=== PATIENT | male | born 1955 | race Caucasian/White ===

== ENCOUNTER 2018-10-21 21:54 | Observation (INO) | payer MEDICARE, OTHER ==
[2018-10-21] MEDS ORDERED: Sodium Chloride 0.9% 1,000 ML IV ONE (22:06)
[2018-10-21] MEDS ORDERED: Sodium Chloride 0.9% 1,000 ML IV SCH (22:15)
--- NOTE | 2018-10-21 22:24 | EDM.PDOC ---
ED HPI GENERAL MEDICAL PROBLEM - General Chief Complaint: Chest Pain Stated Complaint: CHEST PAIN Time Seen by Provider: 10/21/18 22:17 - History of Present Illness INITIAL COMMENTS - FREE TEXT/NARRATIVE: HISTORY AND PHYSICAL: History of present illness: Patient is a 63-year-old male history of medical noncompliance coronary artery disease with stent placement approximately 1 year prior with type 2 diabetes but his deferred medication for management he states is not make him feel well. He presents today with of chest discomfort that occurred when he was bringing in groceries with midsternal no clear associated nausea vomiting palpitations or diaphoresis. medics were notified patient did receive a total of 3 sublingual nitroglycerin and 50 fentanyl patient did also receive aspirin prior to arrival Review of systems: As per history of present illness and below otherwise all systems reviewed and negative. Past medical history: As per history of present illness and as reviewed below otherwise noncontributory. Surgical history: As per history of present illness and as reviewed below otherwise noncontributory. Social history: No reported history of drug or alcohol abuse. Family history: As per history of present illness and as reviewed below otherwise noncontributory. Physical exam: HEENT: Atraumatic, normocephalic, pupils reactive, negative for conjunctival pallor or scleral icterus, mucous membranes moist, throat clear, neck supple, nontender, trachea midline. Lungs: Clear to auscultation, breath sounds equal bilaterally, chest nontender. Heart: S1S2, regular, negative for clicks, rubs, or JVD. Abdomen: Soft, nondistended, nontender. Negative for masses or hepatosplenomegaly. Negative for costovertebral tenderness. Pelvis: Stable nontender. Genitourinary: Deferred. Rectal: Deferred. Extremities: Atraumatic, negative for cords or calf pain. Neurovascular unremarkable. Neuro: Awake, alert, oriented. Cranial nerves II through XII unremarkable. Cerebellum unremarkable. Motor and sensory unremarkable throughout. Exam nonfocal. Diagnostics: CBC CMP troponin PT/INR chest x-ray EKG Therapeutics: IV O2 monitor Impression: #1 chest pain #2 type 2 diabetes #3 medical noncompliance Definitive disposition and diagnosis as appropriate pending reevaluation and review of above. Treatments CONSTITUTION[employer] PROFESSOR: Reports: Aspirin, IV/IO, Other (see below) Other Treatments CONSTITUTIONAL [employer] PROFESSOR: fentanyl chest Pain Score (Numeric/FACES): 3 - Related Data Allergies Allergy/AdvReac Type Severity Reaction Status Date / Time No Known Allergies Allergy Verified 10/21/18 22:00 Home Meds: Home Meds Lisinopril 5 mg PO BID 10/21/18 [History] Metoprolol Succinate [Kapspargo Sprinkle] 25 mg PO BID 10/21/18 [History] Past Medical History HEENT History: Reports: None Cardiovascular History: Reports: Hypertension Endocrine/Metabolic History: Reports: Diabetes, Type II, Other (See Below) Other Endocrine/Metabolic History: states "im not taking any medicine for diabetes" - Infectious Disease History Infectious Disease History: Reports: Chicken Pox, Mumps - Past Surgical History HEENT Surgical History: Reports: Adenoidectomy, Tonsillectomy Cardiovascular Surgical History: Reports: None Endocrine Surgical History: Reports: None Social & Family History - Family History Family Medical History: Noncontributory - Tobacco Use Smoking Status *Q: Former Smoker Used Tobacco, but Quit: Yes Month/Year Tobacco Last Used: "10-15years" - Caffeine Use Caffeine Use: Reports: Coffee - Recreational Drug Use Recreational Drug Use: No ED ROS GENERAL - Review of Systems Review Of Systems: ROS reveals no pertinent complaints other than HPI. ED EXAM, GENERAL - Physical Exam Exam: See Below (See dictation) Course - Vital Signs Last Recorded V/S: Last Vital Signs Temp 36.1 C 10/21/18 21:56 Pulse 97 10/21/18 22:58 Resp 14 10/21/18 22:38 BP 86/52 L 10/21/18 22:58 Pulse Ox 96 10/21/18 22:58 - Orders/Labs/Meds Orders: Active Orders 24 hr Category Date Time Status Cardiac Monitoring [RC] . DIRECTED Care 10/21/18 22:02 Active EKG Documentation Completion [RC] STAT Care 10/21/18 22:02 Active Sodium Chloride 0.9% [Normal Saline] 1,000 ml Med 10/21/18 22:06 Active IV .Bolus Sodium Chloride 0.9% [Normal Saline] 1,000 ml Med 10/21/18 23:00 Active IV ASDIRECTED Medication Orders Sodium Chloride (Normal Saline) 1,000 mls @ 999 mls/hr IV .Bolus ONE Stop: 10/21/18 23:06 Last Admin: 10/21/18 22:15 Dose: 999 mls/hr Sodium Chloride (Normal Saline) 1,000 mls @ 125 mls/hr IV ASDIRECTED MECHE Last Admin: 10/21/18 22:47 Dose: 125 mls/hr Labs: Laboratory Tests 10/21/18 10/21/18 10/21/18 Range/Units 22:11 22:11 22:11 WBC 6.49 (4.0-11.0) K/uL RBC 4.56 (4.50-5.90) M/uL Hgb 14.3 (13.0-17.0) g/dL Hct 42.1 (38.0-50.0) % MCV 92.3 (80.0-98.0) fL MCH 31.4 (27.0-32.0) pg MCHC 34.0 (31.0-37.0) g/dL RDW Std Deviation 44.7 (28.0-62.0) fl RDW Coeff of Yazan 13 (11.0-15.0) % Plt Count 161 (150-400) K/uL MPV 10.10 (7.40-12.00) fL Neut % (Auto) 61.6 (48.0-80.0) % Lymph % (Auto) 24.5 (16.0-40.0) % [place] % (Auto) 10.6 (0.0-15.0) % Eos % (Auto) 2.8 (0.0-7.0) % Baso % (Auto) 0.5 (0.0-1.5) % Neut # (Auto) 4.0 (1.4-5.7) K/uL Lymph # (Auto) 1.6 (0.6-2.4) K/uL [place] # (Auto) 0.7 (0.0-0.8) K/uL Eos # (Auto) 0.2 (0.0-0.7) K/uL Baso # (Auto) 0.0 (0.0-0.1) K/uL Nucleated RBC % 0.0 /100WBC Nucleated RBCs # 0 K/uL INR 0.98 Sodium 137 (136-148) mmol/L Potassium 4.7 (3.5-5.1) mmol/L Chloride 100 (98-107) mmol/L Carbon Dioxide 22.5 (21.0-32.0) mmol/L BUN 33 H (7.0-18.0) mg/dL Creatinine 2.0 H (0.8-1.3) mg/dL Est Cr Clr Drug Dosing 40.42 mL/min Estimated GFR (MDRD) 33.7 ml/min Glucose 488 H (74-106) mg/dL Calcium 9.0 (8.5-10.1) mg/dL Total Bilirubin 0.4 (0.2-1.0) mg/dL AST 9 L (15-37) IU/L ALT 13 L (14-63) IU/L Alkaline Phosphatase 90 (46-116) U/L Troponin I < 0.050 (0.000-0.056) ng/mL Total Protein 6.2 L (6.4-8.2) g/dL Albumin 3.1 L (3.4-5.0) g/dL Globulin 3.1 (2.6-4.0) g/dL Albumin/Globulin Ratio 1.0 (0.9-1.6) Meds: Medications Generic Name Dose Route Start Last Admin Trade Name Freq PRN Reason Stop Dose Admin Sodium Chloride 1,000 mls @ 999 mls/hr 10/21/18 22:06 10/21/18 22:15 Normal Saline IV 10/21/18 23:06 999 mls/hr .Bolus ONE Administration Sodium Chloride 1,000 mls @ 125 mls/hr 10/21/18 23:00 10/21/18 22:47 Normal Saline IV 125 mls/hr ASDIRECTED MECHE Administration Discontinued Medications Generic Name Dose Route Start Last Admin Trade Name Freq PRN Reason Stop Dose Admin Sodium Chloride 1,000 mls @ 999 mls/hr 10/21/18 22:15 Normal Saline IV ASDIRECTED MECHE Departure - Departure Time of Disposition: 23:02 Disposition: Home, Self-Care 01 Condition: Good Clinical Impression: Chest pain, Diabetes, Medical non-compliance - Discharge Information Referrals: PCP,None [Primary Care Provider] - Forms: ED Department Discharge - My Orders Last 24 Hours: My Active Orders 10/21/18 22:02 Cardiac Monitoring [RC] . DIRECTED EKG Documentation Completion [RC] STAT 10/21/18 22:06 Sodium Chloride 0.9% [Normal Saline] 1,000 ml IV .Bolus 10/21/18 23:00 Sodium Chloride 0.9% [Normal Saline] 1,000 ml IV ASDIRECTED - Assessment/Plan Last 24 Hours: My Active Orders 10/21/18 22:02 Cardiac Monitoring [RC] . DIRECTED EKG Documentation Completion [RC] STAT 10/21/18 22:06 Sodium Chloride 0.9% [Normal Saline] 1,000 ml IV .Bolus 10/21/18 23:00 Sodium Chloride 0.9% [Normal Saline] 1,000 ml IV ASDIRECTED
[2018-10-21 22:43] LABS: CHLORIDE,CL 100 mmol/L (98-107); SODIUM,NA 137 mmol/L (136-148)
[2018-10-21] MEDS: Sodium Chloride 0.9% 1,000 ML IV SCH (22:47)
--- NOTE | 2018-10-21 22:56 | CR ---
INDICATION: Chest pain TECHNIQUE: Chest radiograph 1 view COMPARISON: None FINDINGS: Moderate degradation of image quality noted due to body habitus. Mediastinum: There is a hemispherical masslike density in the right paratracheal region at the thoracic inlet measuring 3.8 cm. The heart silhouette is normal in size and morphology. Lung: There is an azygos fissure present which is a normal variant. Mild linear scarring or atelectasis is seen in the left lateral lung base. No sign of pleural effusion seen. No pneumothorax is identified. IMPRESSION: 1. There is a hemispherical masslike density in the right paratracheal region at the thoracic inlet measuring 3.8 cm. Further evaluation with chest CT is recommended. Dictated by Porter Zaman MD @ 10/21/2018 10:54:38 PM Dictated by: Porter Zaman MD @ 10/21/2018 22:54:41 (Electronically Signed)
[2018-10-22] MEDS ORDERED: Insulin Aspart 100 Units/ML 3 ML Pen SUBCUT ONE (00:24)
--- NOTE | 2018-10-22 01:12 | PCM.HP ---
H&P History of Present Illness - General Date of Service: 10/22/18 Admit Problem/Dx: Admission Diagnosis/Problem Admission Diagnosis/Problem Chest pain - History of Present Illness Initial Comments - Free Text/Narative: 63 yo male with pmh of DM, CAD, s/p stent four years ago who presents with chest pain. Patient reports center chest pressure that took three SL nitros for pain relief. He reports he had a stress full day at work then went out at too much for dinner with a sania. He then went grocery shopping and was brining his groceries in. He reports he usually manages his diabetes with diet and probiotics. He recently started to work in [place] the past several weeks and he has been noncompliant with his diet. He reports he has not tolerated oral hypoglycemics. chest Pain Score (Numeric/FACES): 3 - Related Data Allergies/Adverse Reactions: Allergies Allergy/AdvReac Type Severity Reaction Status Date / Time No Known Allergies Allergy Verified 10/22/18 00:26 Home Medications: Home Meds Lisinopril 5 mg PO BID 10/21/18 [History] Metoprolol Succinate [Kapspargo Sprinkle] 25 mg PO BID 10/21/18 [History] Past Medical History HEENT History: Reports: Cataract Cardiovascular History: Reports: Hypertension Genitourinary History: Reports: Prostate Disorder Endocrine/Metabolic History: Reports: Diabetes, Type II, Other (See Below) Other Endocrine/Metabolic History: states "im not taking any medicine for diabetes" - Infectious Disease History Infectious Disease History: Reports: Chicken Pox, Mumps - Past Surgical History HEENT Surgical History: Reports: Adenoidectomy, Tonsillectomy Cardiovascular Surgical History: Reports: Coronary Artery Stent Other Cardiovascular Surgeries/Procedures: Stent put in 4 years ago Male Surgical History: Reports: TURP-Transurethral Resection of Prostate, Other (See Below) Other Male Surgeries/Procedures: 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 Exam - Vital Signs Vital Signs: Last Vital Signs Temp 36.4 C 10/22/18 00:00 Pulse 100 10/22/18 00:00 Resp 18 10/22/18 00:00 BP 114/72 10/22/18 00:00 Pulse Ox 98 10/22/18 00:00 Weight: 109.769 kg - Exam Quality Assessment: Skin Breakdown General: Alert HEENT: Mucosa Moist & [place] Lungs: Clear to Auscultation, Normal Respiratory Effort Cardiovascular: Regular Rate, Regular Rhythm GI/Abdominal Exam: Normal Bowel Sounds, Soft, Non-Tender Extremities: Non-Tender, No Pedal Edema Skin: Warm, Dry, Intact Neurological: Cranial Nerves Intact - Patient Data Lab Results Last 24 hrs: Laboratory Results - last 24 hr 10/21/18 10/21/18 10/21/18 Range/Units 22:11 22:11 22:11 WBC 6.49 (4.0-11.0) K/uL RBC 4.56 (4.50-5.90) M/uL Hgb 14.3 (13.0-17.0) g/dL Hct 42.1 (38.0-50.0) % MCV 92.3 (80.0-98.0) fL MCH 31.4 (27.0-32.0) pg MCHC 34.0 (31.0-37.0) g/dL RDW Std Deviation 44.7 (28.0-62.0) fl RDW Coeff of Yazan 13 (11.0-15.0) % Plt Count 161 (150-400) K/uL MPV 10.10 (7.40-12.00) fL Neut % (Auto) 61.6 (48.0-80.0) % Lymph % (Auto) 24.5 (16.0-40.0) % [place] % (Auto) 10.6 (0.0-15.0) % Eos % (Auto) 2.8 (0.0-7.0) % Baso % (Auto) 0.5 (0.0-1.5) % Neut # (Auto) 4.0 (1.4-5.7) K/uL Lymph # (Auto) 1.6 (0.6-2.4) K/uL [place] # (Auto) 0.7 (0.0-0.8) K/uL Eos # (Auto) 0.2 (0.0-0.7) K/uL Baso # (Auto) 0.0 (0.0-0.1) K/uL Nucleated RBC % 0.0 /100WBC Nucleated RBCs # 0 K/uL INR 0.98 Sodium 137 (136-148) mmol/L Potassium 4.7 (3.5-5.1) mmol/L Chloride 100 (98-107) mmol/L Carbon Dioxide 22.5 (21.0-32.0) mmol/L BUN 33 H (7.0-18.0) mg/dL Creatinine 2.0 H (0.8-1.3) mg/dL Est Cr Clr Drug Dosing 40.42 mL/min Estimated GFR (MDRD) 33.7 ml/min Glucose 488 H (74-106) mg/dL POC Glucose (60-110) mg/dL Calcium 9.0 (8.5-10.1) mg/dL Total Bilirubin 0.4 (0.2-1.0) mg/dL AST 9 L (15-37) IU/L ALT 13 L (14-63) IU/L Alkaline Phosphatase 90 (46-116) U/L Troponin I < 0.050 (0.000-0.056) ng/mL Total Protein 6.2 L (6.4-8.2) g/dL Albumin 3.1 L (3.4-5.0) g/dL Globulin 3.1 (2.6-4.0) g/dL Albumin/Globulin Ratio 1.0 (0.9-1.6) 10/22/18 Range/Units 00:50 WBC (4.0-11.0) K/uL RBC (4.50-5.90) M/uL Hgb (13.0-17.0) g/dL Hct (38.0-50.0) % MCV (80.0-98.0) fL MCH (27.0-32.0) pg MCHC (31.0-37.0) g/dL RDW Std Deviation (28.0-62.0) fl RDW Coeff of Yazan (11.0-15.0) % Plt Count (150-400) K/uL MPV (7.40-12.00) fL Neut % (Auto) (48.0-80.0) % Lymph % (Auto) (16.0-40.0) % [place] % (Auto) (0.0-15.0) % Eos % (Auto) (0.0-7.0) % Baso % (Auto) (0.0-1.5) % Neut # (Auto) (1.4-5.7) K/uL Lymph # (Auto) (0.6-2.4) K/uL [place] # (Auto) (0.0-0.8) K/uL Eos # (Auto) (0.0-0.7) K/uL Baso # (Auto) (0.0-0.1) K/uL Nucleated RBC % /100WBC Nucleated RBCs # K/uL INR Sodium (136-148) mmol/L Potassium (3.5-5.1) mmol/L Chloride (98-107) mmol/L Carbon Dioxide (21.0-32.0) mmol/L BUN (7.0-18.0) mg/dL Creatinine (0.8-1.3) mg/dL Est Cr Clr Drug Dosing mL/min Estimated GFR (MDRD) ml/min Glucose (74-106) mg/dL POC Glucose 419 H (60-110) mg/dL Calcium (8.5-10.1) mg/dL Total Bilirubin (0.2-1.0) mg/dL AST (15-37) IU/L ALT (14-63) IU/L Alkaline Phosphatase (46-116) U/L Troponin I (0.000-0.056) ng/mL Total Protein (6.4-8.2) g/dL Albumin (3.4-5.0) g/dL Globulin (2.6-4.0) g/dL Albumin/Globulin Ratio (0.9-1.6) Result Diagrams: 10/21/18 22:11 10/21/18 22:11 Problem List Initiated/Reviewed/Updated: Yes Orders Last 24hrs: Active Orders 24 hr Category Date Time Status Patient Status [ADT] Stat ADT 10/21/18 23:04 Active Accu Check [Blood Glucose Check, Bedside] [RC] ONETIME Care 10/22/18 03:00 Ordered Antiembolic Devices [RC] PER UNIT ROUTINE Care 10/22/18 01:08 Ordered Blood Glucose Check, Bedside [RC] TIDMEALS Care 10/22/18 01:07 Ordered Cardiac Monitoring [RC] . DIRECTED Care 10/21/18 22:02 Active EKG Documentation Completion [RC] STAT Care 10/21/18 22:02 Active Oxygen Therapy [RC] PRN Care 10/22/18 01:07 Ordered VTE/DVT Education [RC] PER UNIT ROUTINE Care 10/22/18 01:07 Ordered Vital Signs [RC] Q4H Care 10/22/18 01:07 Ordered Consult to Diabetic Nurse Specialist [CONS] Routine Cons 10/22/18 01:07 Ordered [employer] Diet [DIET] Diet 10/22/18 Breakfast Ordered GLYCOSYLATED HEMOGLOBIN,HGBA1C [CHEM] Stat Lab 10/22/18 04:00 Ordered TROPONIN I [CHEM] Q6H Lab 10/22/18 04:00 Ordered TROPONIN I [CHEM] Q6H Lab 10/22/18 10:00 Ordered Insulin Aspart [NovoLOG] Med 10/22/18 07:30 Ordered See Protocol SUBCUT TIDAC Sodium Chloride 0.9% [Normal Saline] 1,000 ml Med 10/21/18 23:00 Active IV ASDIRECTED Sequential Compression Device [OM.PC] Per Unit Routine Oth 10/22/18 01:07 Ordered Resuscitation Status Routine Resus Stat 10/22/18 01:07 Ordered Medication Orders Sodium Chloride (Normal Saline) 1,000 mls @ 125 mls/hr IV ASDIRECTED MECHE Last Admin: 10/21/18 22:47 Dose: 125 mls/hr Insulin Aspart (Novolog) 0 unit SUBCUT TIDAC MECHE; Protocol Assessment/Plan Comment:: 63 yo male who presents with chest pain.
[2018-10-22 04:18] LABS: HEMOGLOBIN A1C 12.8 % (4.5-6.2)
[2018-10-22] MEDS: Sodium Chloride 0.9% 1,000 ML IV SCH (06:35)
[2018-10-22] MEDS: Insulin Aspart 100 Units/ML 3 ML Pen SUBCUT SCH ×2 (08:20→11:48)
[2018-10-22] MEDS ORDERED: Insulin Glargine,Human Rec. Analog 100 Units/ML 3 ML Pen SUBCUT SCH (09:00)
[2018-10-22] MEDS ORDERED: Pantoprazole 40 MG in Sodium Chloride 0.9% 100 ML IVPUSH ONE (09:01)
[2018-10-22] MEDS ORDERED: Calcium Carbonate 500 MG Tab.Chew PO PRN (09:01)
[2018-10-22] MEDS ORDERED: Pantoprazole 40 MG Vial IVPUSH ONE (09:15)
[2018-10-22 11:56] LABS: CHLORIDE,CL 104 mmol/L (98-107); SODIUM,NA 139 mmol/L (136-148)
--- NOTE | 2018-10-22 14:33 | CT ---
EXAMINATION: CT chest without contrast HISTORY: Mass COMPARISON: Radiographs dated 10/21/2018 TECHNIQUE: Axial CT imaging obtained through the chest without contrast. Coronal and sagittal reconstructions obtained. FINDINGS: The lungs are clear without focal consolidation. Mild groundglass changes noted within the lung apices with a trace interlobular septal thickening. No pleural effusion or pneumothorax. The heart is normal in size without pericardial effusion. Coronary artery calcifications. No mediastinal lymphadenopathy, no hilar fullness. No axillary lymphadenopathy. Accessory azygos fissure. Visualized images of the upper abdomen appear normal. No suspicious osseous abnormalities. IMPRESSION: 1. Mild groundglass changes within the lung apices with a trace interlobular septal thickening. This may represent minimal pulmonary edema, however given the location consider follow-up imaging. 2. There is no mass identified within the region of concern. 3. Accessory azygos fissure.
--- NOTE | 2018-10-22 15:21 | PCM.DCSUM1 ---
Discharge Summary - Hospital Course Brief History: 63 yo male with pmh of DM, CAD, s/p stent four years ago who presents with chest pain. Patient reports center chest pressure that took three SL nitros for pain relief. He reports he had a stress full day at work then went out at too much for dinner with a sania. He then went grocery shopping and was brining his groceries in. He reports he usually manages his diabetes with diet and probiotics. He recently started to work in [employer] the past several weeks and he has been noncompliant with his diet. He reports he has not tolerated oral hypoglycemics. Diagnosis: Stroke: No - Discharge Data Discharge Date: 10/22/18 Discharge Disposition: Home, Self-Care 01 Condition: Stable - Discharge Diagnosis/Problem(s) (1) Chest pain SNOMED Code(s): 16640146 ICD Code: R07.9 - CHEST PAIN, UNSPECIFIED Status: Acute Current Visit: Yes (2) History of coronary artery stent placement SNOMED Code(s): 856723044, 118793362 ICD Code: Z95.5 - PRESENCE OF CORONARY ANGIOPLASTY IMPLANT AND GRAFT Status : Chronic Current Visit: Yes (3) CAD (coronary artery disease) SNOMED Code(s): 53666898 ICD Code: I25.10 - ATHSCL HEART DISEASE OF [place] CORONARY ARTERY W/O ANG PCTRS Status: Chronic Current Visit: Yes Qualifiers: Coronary Disease-Associated Artery/Lesion type: [place] artery [place] vs. transplanted heart: [place] heart Associated angina: without angina Qualified Code(s): I25.10 - Atherosclerotic heart disease of [place] coronary artery without angina pectoris (4) Diabetes SNOMED Code(s): 70195764 ICD Code: E11.9 - TYPE 2 DIABETES MELLITUS WITHOUT COMPLICATIONS Status: Chronic Current Visit: Yes Qualifiers: Diabetes mellitus type: type 2 Diabetes mellitus rodent exterminator insulin use: without rodent exterminator use Diabetes mellitus complication status: with hyperglycemia Qualified Code(s): E11.65 - Type 2 diabetes mellitus with hyperglycemia (5) Medical non-compliance SNOMED Code(s): 440170607 ICD Code: Z91.19 - PATIENT'S NONCOMPLIANCE W OTH MEDICAL TREATMENT AND REGIMEN Status: Chronic Current Visit: Yes - Patient Summary/Data Consults: Consultations 10/22/18 01:07 Consult to Diabetic Nurse Specialist [CONS] Routine - Patient Instructions Diet: Heart Healthy Diet, Diabetic Diet Activity: As Tolerated, No Strenuous Activities Showering/Bathing: May Shower Notify Provider of: Fever, Increased Pain, Swelling and Redness, Drainage, Nausea and/or Vomiting - Discharge Plan *PRESCRIPTION DRUG MONITORING PROGRAM REVIEWED*: Not Applicable *COPY OF PRESCRIPTION DRUG MONITORING REPORT IN PATIENT HIRAL: Not Applicable Prescriptions/Med Rec: Aspirin 81 mg PO DAILY #30 tab.chew atorvaSTATin [Lipitor] 40 mg PO BEDTIME #30 tablet Insulin Aspart [NovoLOG] See Protocol SUBCUT TIDAC #1 box Insulin Glarg,Human.Rec.Analog [Lantus Solostar] 10 units SUBCUT DAILY #1 box Lisinopril 5 mg PO DAILY #30 tablet Home Medications: Home Meds Metoprolol Succinate [Kapspargo Sprinkle] 25 mg PO BID 10/21/18 [History] Aspirin 81 mg PO DAILY #30 tab.chew 10/22/18 [Rx] Insulin Aspart [NovoLOG] See Protocol SUBCUT TIDAC #1 box 10/22/18 [Rx] Insulin Glarg,Human.Rec.Analog [Lantus Solostar] 10 units SUBCUT DAILY #1 box [Rx] Lisinopril 5 mg PO DAILY #30 tablet 10/22/18 [Rx] atorvaSTATin [Lipitor] 40 mg PO BEDTIME #30 tablet 10/22/18 [Rx] Oxygen Therapy Mode: Room Air Referrals: Irma Adame PA [Physician Voice Data Communications Engineer] - 10/31/18 8:00 am - Discharge Summary/Plan Comment DC Time >30 min.: No Discharge Summary/Plan Comment: Admitting diagnoses: Chest pain Hyperglycemia Discharge Diagnosis Chest pain resolved Hyperglycemia- improving Hyperlipidemia Other PMH: Uncontrolled Type 2 DM HTN CAD Hx coronary artery stenting Lalo is feeling better this morning, no further chest pain. BS have been controlled with insulin. He will be started on Lantus 10 units and Novolog SSI with meals since he has been unable to tolerate oral hypoglycemic agents. A1c returned at 12.8. DM educator will see him prior to discharge and will follow up with him as well. He will be started on Atorvastatin for his CAD and hyperlipidemia, triglycerides 460, Total cholesterol 256, and HDL 28. He will also be encouraged to take an Aspirin daily. He will be set up for outpatient stress test to further evaluate. He keep with heart healthy diet as well as diabetic diet. Chest CT was completed on chest xray revealed possible paratracheal mass. No mass noted on CT, ground glass opacities noted, repeat CT in a few weeks recommended. Denies shortness of breath. He will have follow up appointment with PCP in 1 week, stress test and follow up with DM educator to monitor insulin and make adjustments as needed. - General Info Date of Service: 10/22/18 Admission Dx/Problem (Free Text: Admission Diagnosis/Problem Admission Diagnosis/Problem Chest pain Subjective Update: Feeling better today. No chest pain. No complaints. Eager for discharge home. Functional Status: Reports: Pain Controlled, Tolerating Diet, Ambulating, Urinating - Review of Systems General: Reports: No Symptoms. Denies: Weakness, Fatigue Pulmonary: Reports: No Symptoms. Denies: Shortness of Breath Cardiovascular: Reports: No Symptoms. Denies: Chest Pain, Orthopnea, Edema Gastrointestinal: Reports: No Symptoms. Denies: Abdominal Pain, Nausea, Vomiting Genitourinary: Reports: No Symptoms Musculoskeletal: Reports: No Symptoms Skin: Reports: No Symptoms Neurological: Reports: No Symptoms Psychiatric: Reports: No Symptoms - Patient Data Vitals - Most Recent: Last Vital Signs Temp 97.6 F 10/22/18 12:18 Pulse 88 10/22/18 12:18 Resp 16 10/22/18 12:18 BP 126/78 10/22/18 12:18 Pulse Ox 95 10/22/18 12:18 Weight - Most Recent: 109.769 kg I&O - Last 24 hours: Intake & Output 10/22/18 10/22/18 10/22/18 06:59 14:59 22:59 Intake Total 1119 Output Total 0 Balance 1119 Lab Results - Last 24 hrs: Laboratory Results - last 24 hr 10/21/18 10/21/18 10/21/18 Range/Units 22:11 22:11 22:11 WBC 6.49 (4.0-11.0) K/uL RBC 4.56 (4.50-5.90) M/uL Hgb 14.3 (13.0-17.0) g/dL Hct 42.1 (38.0-50.0) % MCV 92.3 (80.0-98.0) fL MCH 31.4 (27.0-32.0) pg MCHC 34.0 (31.0-37.0) g/dL RDW Std Deviation 44.7 (28.0-62.0) fl RDW Coeff of Yazan 13 (11.0-15.0) % Plt Count 161 (150-400) K/uL MPV 10.10 (7.40-12.00) fL Neut % (Auto) 61.6 (48.0-80.0) % Lymph % (Auto) 24.5 (16.0-40.0) % [place] % (Auto) 10.6 (0.0-15.0) % Eos % (Auto) 2.8 (0.0-7.0) % Baso % (Auto) 0.5 (0.0-1.5) % Neut # (Auto) 4.0 (1.4-5.7) K/uL Lymph # (Auto) 1.6 (0.6-2.4) K/uL [place] # (Auto) 0.7 (0.0-0.8) K/uL Eos # (Auto) 0.2 (0.0-0.7) K/uL Baso # (Auto) 0.0 (0.0-0.1) K/uL Nucleated RBC % 0.0 /100WBC Nucleated RBCs # 0 K/uL INR 0.98 Sodium 137 (136-148) mmol/L Potassium 4.7 (3.5-5.1) mmol/L Chloride 100 (98-107) mmol/L Carbon Dioxide 22.5 (21.0-32.0) mmol/L BUN 33 H (7.0-18.0) mg/dL Creatinine 2.0 H (0.8-1.3) mg/dL Est Cr Clr Drug Dosing 40.42 mL/min Estimated GFR (MDRD) 33.7 ml/min Glucose 488 H (74-106) mg/dL POC Glucose (60-110) mg/dL Hemoglobin A1c (4.5-6.2) % Calcium 9.0 (8.5-10.1) mg/dL Total Bilirubin 0.4 (0.2-1.0) mg/dL AST 9 L (15-37) IU/L ALT 13 L (14-63) IU/L Alkaline Phosphatase 90 (46-116) U/L Troponin I < 0.050 (0.000-0.056) ng/mL Total Protein 6.2 L (6.4-8.2) g/dL Albumin 3.1 L (3.4-5.0) g/dL Globulin 3.1 (2.6-4.0) g/dL Albumin/Globulin Ratio 1.0 (0.9-1.6) Triglycerides (0-200) mg/dL Cholesterol (50-200) mg/dL HDL Cholesterol (40-60) mg/dL Cholesterol/HDL Ratio (3.3-6.0) 10/22/18 10/22/18 10/22/18 Range/Units 00:50 03:06 04:02 WBC (4.0-11.0) K/uL RBC (4.50-5.90) M/uL Hgb (13.0-17.0) g/dL Hct (38.0-50.0) % MCV (80.0-98.0) fL MCH (27.0-32.0) pg MCHC (31.0-37.0) g/dL RDW Std Deviation (28.0-62.0) fl RDW Coeff of Yazan (11.0-15.0) % Plt Count (150-400) K/uL MPV (7.40-12.00) fL Neut % (Auto) (48.0-80.0) % Lymph % (Auto) (16.0-40.0) % [place] % (Auto) (0.0-15.0) % Eos % (Auto) (0.0-7.0) % Baso % (Auto) (0.0-1.5) % Neut # (Auto) (1.4-5.7) K/uL Lymph # (Auto) (0.6-2.4) K/uL [place] # (Auto) (0.0-0.8) K/uL Eos # (Auto) (0.0-0.7) K/uL Baso # (Auto) (0.0-0.1) K/uL Nucleated RBC % /100WBC Nucleated RBCs # K/uL INR Sodium (136-148) mmol/L Potassium (3.5-5.1) mmol/L Chloride (98-107) mmol/L Carbon Dioxide (21.0-32.0) mmol/L BUN (7.0-18.0) mg/dL Creatinine (0.8-1.3) mg/dL Est Cr Clr Drug Dosing mL/min Estimated GFR (MDRD) ml/min Glucose (74-106) mg/dL POC Glucose 419 H 347 H (60-110) mg/dL Hemoglobin A1c (4.5-6.2) % Calcium (8.5-10.1) mg/dL Total Bilirubin (0.2-1.0) mg/dL AST (15-37) IU/L ALT (14-63) IU/L Alkaline Phosphatase (46-116) U/L Troponin I < 0.050 (0.000-0.056) ng/mL Total Protein (6.4-8.2) g/dL Albumin (3.4-5.0) g/dL Globulin (2.6-4.0) g/dL Albumin/Globulin Ratio (0.9-1.6) Triglycerides (0-200) mg/dL Cholesterol (50-200) mg/dL HDL Cholesterol (40-60) mg/dL Cholesterol/HDL Ratio (3.3-6.0) 10/22/18 10/22/18 10/22/18 Range/Units 04:02 04:02 06:38 WBC (4.0-11.0) K/uL RBC (4.50-5.90) M/uL Hgb (13.0-17.0) g/dL Hct (38.0-50.0) % MCV (80.0-98.0) fL MCH (27.0-32.0) pg MCHC (31.0-37.0) g/dL RDW Std Deviation (28.0-62.0) fl RDW Coeff of Yazan (11.0-15.0) % Plt Count (150-400) K/uL MPV (7.40-12.00) fL Neut % (Auto) (48.0-80.0) % Lymph % (Auto) (16.0-40.0) % [place] % (Auto) (0.0-15.0) % Eos % (Auto) (0.0-7.0) % Baso % (Auto) (0.0-1.5) % Neut # (Auto) (1.4-5.7) K/uL Lymph # (Auto) (0.6-2.4) K/uL [place] # (Auto) (0.0-0.8) K/uL Eos # (Auto) (0.0-0.7) K/uL Baso # (Auto) (0.0-0.1) K/uL Nucleated RBC % /100WBC Nucleated RBCs # K/uL INR Sodium (136-148) mmol/L Potassium (3.5-5.1) mmol/L Chloride (98-107) mmol/L Carbon Dioxide (21.0-32.0) mmol/L BUN (7.0-18.0) mg/dL Creatinine (0.8-1.3) mg/dL Est Cr Clr Drug Dosing mL/min Estimated GFR (MDRD) ml/min Glucose (74-106) mg/dL POC Glucose 292 H (60-110) mg/dL Hemoglobin A1c 12.8 H (4.5-6.2) % Calcium (8.5-10.1) mg/dL Total Bilirubin (0.2-1.0) mg/dL AST (15-37) IU/L ALT (14-63) IU/L Alkaline Phosphatase (46-116) U/L Troponin I (0.000-0.056) ng/mL Total Protein (6.4-8.2) g/dL Albumin (3.4-5.0) g/dL Globulin (2.6-4.0) g/dL Albumin/Globulin Ratio (0.9-1.6) Triglycerides 460 H (0-200) mg/dL Cholesterol 256 H (50-200) mg/dL HDL Cholesterol 28 L (40-60) mg/dL Cholesterol/HDL Ratio 9.1 H (3.3-6.0) 10/22/18 10/22/18 Range/Units 11:21 11:39 WBC (4.0-11.0) K/uL RBC (4.50-5.90) M/uL Hgb (13.0-17.0) g/dL Hct (38.0-50.0) % MCV (80.0-98.0) fL MCH (27.0-32.0) pg MCHC (31.0-37.0) g/dL RDW Std Deviation (28.0-62.0) fl RDW Coeff of Yazan (11.0-15.0) % Plt Count (150-400) K/uL MPV (7.40-12.00) fL Neut % (Auto) (48.0-80.0) % Lymph % (Auto) (16.0-40.0) % [place] % (Auto) (0.0-15.0) % Eos % (Auto) (0.0-7.0) % Baso % (Auto) (0.0-1.5) % Neut # (Auto) (1.4-5.7) K/uL Lymph # (Auto) (0.6-2.4) K/uL [place] # (Auto) (0.0-0.8) K/uL Eos # (Auto) (0.0-0.7) K/uL Baso # (Auto) (0.0-0.1) K/uL Nucleated RBC % /100WBC Nucleated RBCs # K/uL INR Sodium 139 (136-148) mmol/L Potassium 4.8 (3.5-5.1) mmol/L Chloride 104 (98-107) mmol/L Carbon Dioxide 20.2 L (21.0-32.0) mmol/L BUN 25 H (7.0-18.0) mg/dL Creatinine 1.4 H (0.8-1.3) mg/dL Est Cr Clr Drug Dosing 57.74 mL/min Estimated GFR (MDRD) 50.9 ml/min Glucose 324 H (74-106) mg/dL POC Glucose 295 H (60-110) mg/dL Hemoglobin A1c (4.5-6.2) % Calcium 8.6 (8.5-10.1) mg/dL Total Bilirubin (0.2-1.0) mg/dL AST (15-37) IU/L ALT (14-63) IU/L Alkaline Phosphatase (46-116) U/L Troponin I < 0.050 (0.000-0.056) ng/mL Total Protein (6.4-8.2) g/dL Albumin (3.4-5.0) g/dL Globulin (2.6-4.0) g/dL Albumin/Globulin Ratio (0.9-1.6) Triglycerides (0-200) mg/dL Cholesterol (50-200) mg/dL HDL Cholesterol (40-60) mg/dL Cholesterol/HDL Ratio (3.3-6.0) Med Orders - Current: Current Medications Atorvastatin Calcium (Lipitor) 40 mg PO BEDTIME MECHE Calcium Carbonate/Glycine (Tums) 1,000 mg PO Q2HR PRN PRN Reason: Indigestion Insulin Aspart (Novolog) 0 unit SUBCUT TIDAC [facility]; Protocol Last Admin: 10/22/18 11:48 Dose: 3 units Insulin Glargine (Lantus Solostar) 10 units SUBCUT DAILY [facility] Last Admin: 10/22/18 09:15 Dose: 10 units Discontinued Medications Sodium Chloride (Normal Saline) 1,000 mls @ 999 mls/hr IV ASDIRECTED [facility] Sodium Chloride (Normal Saline) 1,000 mls @ 999 mls/hr IV .Bolus ONE Stop: 10/21/18 23:06 Last Admin: 10/21/18 22:15 Dose: 999 mls/hr Sodium Chloride (Normal Saline) 1,000 mls @ 125 mls/hr IV ASDIRECTED [facility] Last Admin: 10/22/18 06:35 Dose: 125 mls/hr Insulin Aspart (Novolog) 10 unit SUBCUT ONETIME ONE Stop: 10/22/18 00:25 Last Admin: 10/22/18 00:51 Dose: 10 units Pantoprazole Sodium (Protonix Iv) 40 mg IVPUSH NOW ONE Stop: 10/22/18 09:16 Last Admin: 10/22/18 09:13 Dose: 40 mg - Exam General: Reports: Alert, Oriented HEENT: Reports: Pupils Equal, Pupils Reactive Neck: Reports: Supple, Trachea Midline. Denies: Lymphadenopathy Lungs: Reports: Clear to Auscultation, Normal Respiratory Effort Cardiovascular: Reports: Regular Rate, Regular Rhythm GI/Abdominal Exam: Normal Bowel Sounds, Soft, Non-Tender, No Distention Neurological: Reports: No New Focal Deficit Psy/Mental Status: Reports: Alert, Normal Affect, Normal Mood
[2018-10-22] MEDS ORDERED: atorvaSTATin 40 MG Tab PO SCH (21:00)
== END 2018-10-22 16:45 | disposition home or self-care (01) ==
LOC: MW.ED 21:54 → MW.MS 23:04
PROVIDERS: ADMIT Internal Medicine; ATTEND Internal Medicine
DX: R07.9 Chest pain, unspecified (principal); I25.10 Atherosclerotic heart disease of native coronary artery without angina pectoris; I10 Essential (primary) hypertension; E11.65 Type 2 diabetes mellitus with hyperglycemia; E78.5 Hyperlipidemia, unspecified; Z87.891 Personal history of nicotine dependence; Z91.19 Patient's noncompliance with other medical treatment and regimen; Z95.5 Presence of coronary angioplasty implant and graft; Z79.899 Other long term (current) drug therapy; Z98.890 Other specified postprocedural states
CPT/HCPCS: 36415; 71045; 71250; 80048; 80053; 80061; 82962; 83036; 84484; 85025; 85610; 93005; 96360; 96361; 99285; C9113; J1815; J7040; 96374; 99284; G0378

== ENCOUNTER 2018-11-25 09:36 | Emergency (ER) | payer MEDICARE, OTHER ==
[2018-11-25] MEDS ORDERED: Acetaminophen/HYDROcodone 325-5 MG Tab PO ONE (10:00)
--- NOTE | 2018-11-25 10:08 | EDM.PDOC ---
ED HPI GENERAL MEDICAL PROBLEM - General Chief Complaint: Skin Complaint Stated Complaint: CYST Time Seen by Provider: 11/25/18 09:47 Source of Information: Reports: Patient History Limitations: Reports: No Limitations - History of Present Illness INITIAL COMMENTS - FREE TEXT/NARRATIVE: HISTORY AND PHYSICAL: History of present illness: Patient is a 63-year-old male who presents to the emergency room with complaints of an abscess to his right mid abdomen. He states he does get these routinely and usually his primary care provider will I&D them. He has noticed this particular abscess for approximately 5 days and is becoming more bothersome as it sits along his pant/underwear line. A few days ago he did have minimal drainage from the area, none in the past 24 hours. Patient denies any fever, chills, headache, change in vision, syncope or near syncope. Denies any chest pain, back pain, shortness of breath or cough. Denies any GI or symptoms. Patient has been eating and drinking appropriately. Review of systems: As per history of present illness and below otherwise all systems reviewed and negative. Past medical history: As per history of present illness and as reviewed below otherwise noncontributory. Surgical history: As per history of present illness and as reviewed below otherwise noncontributory. Social history: See social history for further information Family history: As per history of present illness and as reviewed below otherwise noncontributory. Physical exam: General: Well-developed and well-nourished 63-year-old male. Alert and oriented. Nontoxic appearing and in no acute distress. HEENT: Atraumatic, normocephalic, pupils equal and reactive bilaterally, negative for conjunctival pallor or scleral icterus, mucous membranes moist, TMs normal bilaterally, throat clear, neck supple, nontender, trachea midline. No drooling or trismus noted. No meningeal signs. No hot potato voice noted. Lungs: Clear to auscultation, breath sounds equal bilaterally, chest nontender. Heart: S1S2, regular rate and rhythm without overt murmur Abdomen: Soft, nondistended, nontender. See skin for details. Negative for masses. Negative for costovertebral tenderness. Pelvis: Stable nontender. Skin: 50 cent piece sized abscess noted to the right mid abdomen below the umbilicus (in the adipose tissue area/not close to venous structures). It is erythematous with mild fluctuance, nonindurated. Otherwise skin is intact, warm , dry. No lesions or rashes noted. Extremities: Atraumatic, moves all extremities per self without difficulty or deficits, negative for cords or calf pain. Neurovascular unremarkable. Neuro: Awake, alert, oriented. Cranial nerves II through XII unremarkable. Cerebellum unremarkable. Motor and sensory unremarkable throughout. Exam nonfocal. Notes: Area was cleansed 1% lidocaine was used to anesthetize the area, and sterile technique was used for I&D of the abscess. Moderate amount of purulent drainage was expressed from the site. We discussed home care and medication needs. Encouraged him to follow-up with his primary care for reevaluation and further management. Supportive care measures were reviewed and discussed. Voices understanding and is agreeable to plan of care. Denies any further questions or concerns at this time. Diagnostics: None Therapeutics: Lidocaine, Keflex, Kempner Prescription: Keflex Kempner (#10) Impression: Abscess Plan: 1. Keep the area clean and dry. Continue to monitor for signs of improvement. 2. Take the antibiotic as directed. Tylenol and/or Ibuprofen as needed. Kempner for moderate to sever pain 3. Follow up with your primary care provider. Return to the ED as needed and as discussed. Definitive disposition and diagnosis as appropriate pending reevaluation and review of above. abd Pain Score (Numeric/FACES): 8 - Related Data Allergies Allergy/AdvReac Type Severity Reaction Status Date / Time No Known Allergies Allergy Verified 10/22/18 00:26 Home Meds: Home Meds Metoprolol Succinate [Kapspargo Sprinkle] 25 mg PO BID 10/21/18 [History] Aspirin 81 mg PO DAILY #30 tab.chew 10/22/18 [Rx] Insulin Aspart [NovoLOG] See Protocol SUBCUT TIDAC #1 box 10/22/18 [Rx] Insulin Glarg,Human.Rec.Analog [Lantus Solostar] 10 unit SUBCUT DAILY #1 box 05/12 [Rx] Lancets [Lancets Thin] 1 each QID #1 box 10/22/18 [Rx] Lisinopril 5 mg PO DAILY #30 tablet 10/22/18 [Rx] Pen Needle, Diabetic [1St Tier Unifine Pentips Plus] 1 each QID #1 box [Rx] atorvaSTATin [Lipitor] 40 mg PO BEDTIME #30 tablet 10/22/18 [Rx] Acetaminophen/HYDROcodone [Kempner 325-5 MG] 1 tab PO Q4H PRN #10 tablet 11/25/18 [Rx] cephALEXin [Keflex] 500 mg PO TID 7 Days #21 cap 11/25/18 [Rx] Past Medical History HEENT History: Reports: Cataract Cardiovascular History: Reports: Hypertension Genitourinary History: Reports: Prostate Disorder Endocrine/Metabolic History: Reports: Diabetes, Type II, Other (See Below) Other Endocrine/Metabolic History: states "im not taking any medicine for diabetes" - Infectious Disease History Infectious Disease History: Reports: Chicken Pox, Mumps - Past Surgical History HEENT Surgical History: Reports: Adenoidectomy, Tonsillectomy Cardiovascular Surgical History: Reports: Coronary Artery Stent Other Cardiovascular Surgeries/Procedures: Stent put in 4 years ago Male Surgical History: Reports: TURP-Transurethral Resection of Prostate, Other (See Below) Other Male Surgeries/Procedures: 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 ED EXAM, SKIN/RASH Exam: See Below (See dictation) ED SKIN PROCEDURES - I&D Site: Right low abdomen Skin Prep: Chlorhexidine (Hibiciens), Providone-Iodine (Betadine), Sterile Drape Local Anesthesia: Lidocaine: 1% Plain Local Anesthetic Volume: 2cc Area Incised With: 11 Blade Drainage: Purulent, Moderate Amount Probed to Break Up Loculations: Yes Packed With: 1/4 in. Iodoform Sterile Dressing: Adhesive Dressing Complications: No Course - Vital Signs Last Recorded V/S: Last Vital Signs Temp 97.6 F 11/25/18 09:44 Pulse 92 11/25/18 09:44 Resp 18 11/25/18 09:44 BP 152/90 H 11/25/18 09:44 Pulse Ox 95 11/25/18 09:44 - Orders/Labs/Meds Meds: Medications Discontinued Medications Generic Name Dose Route Start Last Admin Trade Name Freq PRN Reason Stop Dose Admin Hydrocodone Bitart/Acetaminophen 1 tab 11/25/18 10:00 11/25/18 10:04 Kempner 325-5 Mg PO 11/25/18 10:01 1 tab ONETIME ONE Administration Cephalexin 500 mg 11/25/18 10:09 Keflex PO 11/25/18 10:10 ONETIME ONE Lidocaine HCl 5 ml 11/25/18 09:51 11/25/18 10:04 Xylocaine-Mpf 1% INJECT 11/25/18 09:52 5 ml ONETIME ONE Administration Departure - Departure Time of Disposition: 10:16 Disposition: Home, Self-Care 01 Clinical Impression: Abscess - Discharge Information Prescriptions: Acetaminophen/HYDROcodone [Kempner 325-5 MG] 1 tab PO Q4H PRN #10 tablet PRN Reason: Pain cephALEXin [Keflex] 500 mg PO TID 7 Days #21 cap Instructions: Skin Abscess, [id number] Referrals: PCP,None [Primary Care Provider] - Forms: ED Department Discharge Additional Instructions: The following information is given to patients seen in the emergency department who are being discharged to home. This information is to outline your options for follow-up care. We provide all patients seen in our emergency department with a follow-up referral. The need for follow-up, as well as the timing and circumstances, are variable depending upon the specifics of your emergency department visit. If you don't have a primary care physician on staff, we will provide you with a referral. We always advise you to contact your personal physician following an emergency department visit to inform them of the circumstance of the visit and for follow-up with them and/or the need for any referrals to a consulting specialist. The emergency department will also refer you to a specialist when appropriate. This referral assures that you have the opportunity for follow-up care with a specialist. All of these measure are taken in an effort to provide you with optimal care, which includes your follow-up. Under all circumstances we always encourage you to contact your private physician who remains a resource for coordinating your care. When calling for follow-up care, please make the office aware that this follow-up is from your recent emergency room visit. If for any reason you are refused follow-up, please contact the [facility] Emergency Department at and asked to speak to the emergency department charge nurse. [facility] [address] [place] [address] [id number] 1. Keep the area clean and dry. Continue to monitor for signs of improvement. 2. Take the antibiotic as directed. Tylenol and/or Ibuprofen as needed. Kempner for moderate to sever pain 3. Follow up with your primary care provider. Return to the ED as needed and as discussed.
[2018-11-25] MEDS ORDERED: Cephalexin 500 MG Cap PO ONE (10:09)
== END 2018-11-25 10:25 | disposition home or self-care (01) ==
LOC: MW.ED 09:36
DX: L02.211 Cutaneous abscess of abdominal wall (principal); I10 Essential (primary) hypertension; E11.9 Type 2 diabetes mellitus without complications; Z79.4 Long term (current) use of insulin; Z79.899 Other long term (current) drug therapy; Z98.890 Other specified postprocedural states; Z95.5 Presence of coronary angioplasty implant and graft
CPT/HCPCS: 10060; 10061; 99283; A9270; J2001; 99282

== ENCOUNTER 2018-12-07 14:25 | Observation (INO) | payer MEDICARE, OTHER ==
[2018-12-07] MEDS ORDERED: Sodium Chloride 0.9% 10 ML Syringe FLUSH PRN (14:32)
[2018-12-07] MEDS ORDERED: Sodium Chloride 0.9% 2.5 ML Syringe FLUSH PRN (14:32)
--- NOTE | 2018-12-07 14:36 | EDM.PDOC ---
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 Past medical history: As per history of present illness and as reviewed below otherwise noncontributory. Surgical history: As per history of present illness and as reviewed below otherwise noncontributory. Social history: No reported history of drug or alcohol abuse. Family history: As per history of present illness and as reviewed below otherwise noncontributory. Physical exam: HEENT: Atraumatic, normocephalic, pupils reactive, negative for conjunctival pallor or scleral icterus, mucous membranes moist, throat clear, neck supple, nontender, trachea midline. Lungs: Clear to auscultation, breath sounds equal bilaterally, chest nontender. Heart: S1S2, regular, negative for clicks, rubs, or JVD. Abdomen: Soft, nondistended, nontender. Negative for masses or hepatosplenomegaly. Negative for costovertebral tenderness. Pelvis: Stable nontender. Genitourinary: Deferred. Rectal: Deferred. Extremities: Atraumatic, negative for cords or calf pain. Neurovascular unremarkable. Neuro: Awake, alert, oriented. Cranial nerves II through XII unremarkable. Cerebellum unremarkable. Motor and sensory unremarkable throughout. Exam nonfocal. Diagnostics: CBC CMP troponin PT/INR chest x-ray EKG CT brain Therapeutics: IV O2 monitor Impression: #1 TIA or 2 history diabetes #3 history of hypertension Definitive disposition and diagnosis as appropriate pending reevaluation and review of above. - Related Data Allergies Allergy/AdvReac Type Severity Reaction Status Date / Time No Known Allergies Allergy Verified 12/07/18 14:36 Home Meds: Home Meds Metoprolol Succinate [K[place]sp[place] Sprinkle] 25 mg PO BID 10/21/18 [History] Aspirin 81 mg PO DAILY #30 tab.chew 10/22/18 [Rx] Insulin Aspart [NovoLOG] See Protocol SUBCUT TIDAC #1 box 10/22/18 [Rx] Insulin Glarg,Human.Rec.Analog [Lantus Solostar] 10 unit SUBCUT DAILY #1 box 05/12 [Rx] Lancets [Lancets Thin] 1 each QID #1 box 10/22/18 [Rx] Lisinopril 5 mg PO DAILY #30 tablet 10/22/18 [Rx] Pen Needle, Diabetic [1St Tier Unifine Pentips Plus] 1 each MC QID #1 box [Rx] atorvaSTATin [Lipitor] 40 mg PO BEDTIME #30 tablet 10/22/18 [Rx] Acetaminophen/HYDROcodone [[place] 325-5 MG] 1 tab PO Q4H PRN #10 tablet 11/25/18 [Rx] cephALEXin [Keflex] 500 mg PO TID 7 Days #21 cap 11/25/18 [Rx] Past Medical History HEENT History: Reports: Cataract Cardiovascular History: Reports: Hypertension Genitourinary History: Reports: Prostate Disorder Endocrine/Metabolic History: Reports: Diabetes, Type II, Other (See Below) Other Endocrine/Metabolic History: states "im not taking any medicine for diabetes" - Infectious Disease History Infectious Disease History: Reports: Chicken Pox, Mumps - Past Surgical History HEENT Surgical History: Reports: Adenoidectomy, Tonsillectomy Cardiovascular Surgical History: Reports: Coronary Artery Stent Other Cardiovascular Surgeries/Procedures: Stent put in 4 years ago Male Surgical History: Reports: TURP-Transurethral Resection of Prostate, Other (See Below) Other Male Surgeries/Procedures: 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 ED EXAM, GENERAL - Physical Exam Exam: See Below (Dictation) Course - Vital Signs Last Recorded V/S: Last Vital Signs Temp Pulse 81 12/07/18 16:13 Resp 18 12/07/18 16:13 BP 160/105 H 12/07/18 16:13 Pulse Ox 97 12/07/18 16:13 - Orders/Labs/Meds Orders: Active Orders 24 hr Category Date Time Status Cardiac Monitoring [RC] . DIRECTED Care 12/07/18 14:30 Active EKG Documentation Completion [RC] STAT Care 12/07/18 14:30 Active Pulse Oximetry [RC] ASDIRECTED Care 12/07/18 14:30 Active UA RFX ALLEN AND CULT IF INDIC [URIN] Stat Lab 12/07/18 14:32 Ordered Sodium Chloride 0.9% [Normal Saline] 1,000 ml Med 12/07/18 14:45 Active IV STAT Sodium Chloride 0.9% [Saline Flush] Med 12/07/18 14:32 Active 10 ml FLUSH ASDIRECTED PRN Sodium Chloride 0.9% [Saline Flush] Med 12/07/18 14:32 Active 2.5 ml FLUSH ASDIRECTED PRN Saline Lock Insert [OM.PC] Stat Oth 12/07/18 14:30 Ordered Medication Orders Sodium Chloride (Normal Saline) 1,000 mls @ 125 mls/hr IV STAT MECHE Last Admin: 12/07/18 15:01 Dose: 125 mls/hr Sodium Chloride (Saline Flush) 10 ml FLUSH ASDIRECTED PRN PRN Reason: Keep Vein Open Sodium Chloride (Saline Flush) 2.5 ml FLUSH ASDIRECTED PRN PRN Reason: Keep Vein Open Labs: Laboratory Tests 12/07/18 12/07/18 12/07/18 Range/Units 14:29 14:29 14:29 WBC 5.75 (4.0-11.0) K/uL RBC 4.65 (4.50-5.90) M/uL Hgb 14.8 (13.0-17.0) g/dL Hct 42.8 (38.0-50.0) % MCV 92.0 (80.0-98.0) fL MCH 31.8 (27.0-32.0) pg MCHC 34.6 (31.0-37.0) g/dL RDW Std Deviation 44.1 (28.0-62.0) fl RDW Coeff of Yazan 13 (11.0-15.0) % Plt Count 142 L (150-400) K/uL MPV 10.90 (7.40-12.00) fL Neut % (Auto) 48.2 (48.0-80.0) % Lymph % (Auto) 37.2 (16.0-40.0) % Gulf % (Auto) 10.6 (0.0-15.0) % Eos % (Auto) 3.5 (0.0-7.0) % Baso % (Auto) 0.5 (0.0-1.5) % Neut # (Auto) 2.8 (1.4-5.7) K/uL Lymph # (Auto) 2.1 (0.6-2.4) K/uL Gulf # (Auto) 0.6 (0.0-0.8) K/uL Eos # (Auto) 0.2 (0.0-0.7) K/uL Baso # (Auto) 0.0 (0.0-0.1) K/uL Nucleated RBC % 0.0 /100WBC Nucleated RBCs # 0 K/uL INR 0.96 Sodium 140 (136-148) mmol/L Potassium 4.7 (3.5-5.1) mmol/L Chloride 105 (98-107) mmol/L Carbon Dioxide 24.1 (21.0-32.0) mmol/L BUN 20 H (7.0-18.0) mg/dL Creatinine 1.0 (0.8-1.3) mg/dL Est Cr Clr Drug Dosing 80.83 mL/min Estimated GFR (MDRD) > 60.0 ml/min Glucose 227 H (74-106) mg/dL Calcium 9.3 (8.5-10.1) mg/dL Total Bilirubin 0.4 (0.2-1.0) mg/dL AST 27 (15-37) IU/L ALT 27 (14-63) IU/L Alkaline Phosphatase 90 (46-116) U/L Troponin I < 0.050 (0.000-0.056) ng/mL Total Protein 6.8 (6.4-8.2) g/dL Albumin 2.9 L (3.4-5.0) g/dL Globulin 3.9 (2.6-4.0) g/dL Albumin/Globulin Ratio 0.7 L (0.9-1.6) TSH 3rd Generation 0.90 (0.36-3.74) uIU/mL Meds: Medications Generic Name Dose Route Start Last Admin Trade Name Freq PRN Reason Stop Dose Admin Sodium Chloride 1,000 mls @ 125 mls/hr 12/07/18 14:45 12/07/18 15:01 Normal Saline IV 125 mls/hr STAT MECHE Administration Sodium Chloride 10 ml 12/07/18 14:32 Saline Flush FLUSH ASDIRECTED PRN Keep Vein Open Sodium Chloride 2.5 ml 12/07/18 14:32 Saline Flush FLUSH ASDIRECTED PRN Keep Vein Open Departure - Departure Time of Disposition: 16:42 Disposition: Refer to Observation Condition: Good Clinical Impression: TIA (transient ischemic attack) - Discharge Information Referrals: PCP,Unknown [Primary Care Provider] - Forms: ED Department Discharge - My Orders Last 24 Hours: My Active Orders 12/07/18 14:30 Cardiac Monitoring [RC] . DIRECTED EKG Documentation Completion [RC] STAT Pulse Oximetry [RC] ASDIRECTED Saline Lock Insert [OM.PC] Stat 12/07/18 14:32 UA RFX ALLEN AND CULT IF INDIC [URIN] Stat Sodium Chloride 0.9% [Saline Flush] 10 ml FLUSH ASDIRECTED PRN Sodium Chloride 0.9% [Saline Flush] 2.5 ml FLUSH ASDIRECTED PRN 12/07/18 14:45 Sodium Chloride 0.9% [Normal Saline] 1,000 ml IV STAT - Assessment/Plan Last 24 Hours: My Active Orders 12/07/18 14:30 Cardiac Monitoring [RC] . DIRECTED EKG Documentation Completion [RC] STAT Pulse Oximetry [RC] ASDIRECTED Saline Lock Insert [OM.PC] Stat 12/07/18 14:32 UA RFX ALLEN AND CULT IF INDIC [URIN] Stat Sodium Chloride 0.9% [Saline Flush] 10 ml FLUSH ASDIRECTED PRN Sodium Chloride 0.9% [Saline Flush] 2.5 ml FLUSH ASDIRECTED PRN 12/07/18 14:45 Sodium Chloride 0.9% [Normal Saline] 1,000 ml IV STAT
[2018-12-07] MEDS ORDERED: Sodium Chloride 0.9% 1,000 ML IV SCH (14:45)
--- NOTE | 2018-12-07 15:04 | CT ---
INDICATION: 63-year-old male. Acute stroke like symptoms. TECHNIQUE: CT images foramen magnum to vertex were obtained without contrast. Axial sagittal and coronal reformatted images were reviewed. FINDINGS: The ventricles normal in size and shape. There is no evidence of acute intracranial hemorrhage. There is no mass effect. There is preservation of christopher-white interface. There is no hyperdense cerebral artery sign. No evidence of acute infarction. Dense atherosclerotic calcifications of parasellar internal carotid arteries, distal vertebral arteries and basilar artery. IMPRESSION: No evidence of acute intracranial abnormality at this time. Please note that all CT scans at this facility use dose modulation, iterative reconstruction, and/or weight-based dosing when appropriate to reduce radiation dose to as low as reasonably achievable. Dictated by Get Fernandez MD @ Dec 07 2018 3:00PM Signed by Dr. Get Fernandez @ Dec 07 2018 3:02PM
--- NOTE | 2018-12-07 16:20 | CR ---
INDICATION: pain, sob TECHNIQUE: Chest 1 view. COMPARISON: 10/21/18 FINDINGS: Cardiovascular and mediastinum: Heart size and vasculature are normal in caliber and appearance. Mediastinum is within normal limits. Lungs and pleural space: Lungs are clear. No sign of infiltrate or mass. No sign of pleural effusion. No pneumothorax. Bones and soft tissues: No significant findings. IMPRESSION: Unremarkable chest. Dictated by: Prudencio Hodges MD @ 12/07/2018 16:18:25 (Electronically Signed)
[2018-12-07 16:30] LABS: CHLORIDE,CL 105 mmol/L (98-107); SODIUM,NA 140 mmol/L (136-148)
[2018-12-07] MEDS ORDERED: Acetaminophen 325 MG Tab PO PRN (16:55)
[2018-12-07] MEDS ORDERED: Morphine 10 MG/ML Syringe IVPUSH PRN (16:55)
[2018-12-07] MEDS ORDERED: Ondansetron 4 MG Tab.DIS PO PRN (16:55)
[2018-12-07] MEDS ORDERED: Ibuprofen 600 MG Tab PO PRN (16:55)
[2018-12-07] MEDS ORDERED: Ondansetron 4 MG/2 ML SDV IVPUSH PRN (16:55)
[2018-12-07] MEDS ORDERED: Acetaminophen/HYDROcodone 325-5 MG Tab PO PRN (16:59)
[2018-12-07] MEDS ORDERED: Enoxaparin 40 MG/0.4 ML Syringe SUBCUT SCH (17:00)
[2018-12-07] MEDS ORDERED: Aspirin 81 MG Tab.Chew PO ONE (17:06)
--- NOTE | 2018-12-07 17:38 | PCM.HP.2 ---
<Coysanjuana Rhys Aguila - Last Filed: 12/07/18 17:43> H&P History of Present Illness - General Date of Service: 12/07/18 Admit Problem/Dx: Admission Diagnosis/Problem Admission Diagnosis/Problem TIA, Transient ischemic attack - History of Present Illness Initial Comments - Free Text/Narative: 63 y/o male with history of CAD s/p stent placement and type 2 diabetes presenting to the ER complaining of trouble speaking. Patient states he was at work, working on his computer typing some emails when he suddenly had difficulty thinking the words to type. He had trouble speaking as well. Denied any pain, change in vision or troubles moving his extremities. Denies any chest pain, dyspnea, abdominal pain, dysuria, diarrhea. No smoking. He states that symptoms ko about 5-10 minutes. He was able to get ahold of his and his drove him to the ER. Once arrived in the ER, he states his symptoms had resolved. He still felt somewhat foggy but the aphasia had resolved and he was able to think and speak the words. Denies any headache, change in vision, nausea, vomiting. In the ER, CT head w/o contrast was negative for any intracranial bleed. Troponin was negative. EKG showed some non-specific ST changes on precordial leads. He denied chest pain, radiation to neck or arm. He was able to speak and move all his extremities. - Related Data Allergies/Adverse Reactions: Allergies Allergy/AdvReac Type Severity Reaction Status Date / Time No Known Allergies Allergy Verified 12/07/18 18:27 Home Medications: Home Meds RX: Metoprolol Succinate [Kapspargo Sprinkle] 25 mg PO BID 10/21/18 [History] Lancets [Lancets Thin] 1 each QID #1 box 10/22/18 [Rx] RX: Aspirin 81 mg PO DAILY #30 tab.chew 10/22/18 [Rx] RX: Insulin Aspart [NovoLOG] See Protocol SUBCUT TIDAC #1 box 10/22/18 [Rx] RX: Lisinopril 5 mg PO DAILY #30 tablet 10/22/18 [Rx] RX: Pen Needle, Diabetic [1St Tier Unifine Pentips Plus] 1 each QID #1 box [Rx] RX: atorvaSTATin [Lipitor] 40 mg PO BEDTIME #30 tablet 10/22/18 [Rx] metFORMIN HCl [Metformin HCl] 500 mg PO BID 12/07/18 [History] Past Medical History HEENT History: Reports: Cataract Cardiovascular History: Reports: Hypertension Respiratory History: Reports: None Gastrointestinal History: Reports: None Genitourinary History: Reports: Prostate Disorder Musculoskeletal History: Reports: None Neurological History: Reports: None Psychiatric History: Reports: None Endocrine/Metabolic History: Reports: Diabetes, Type II, Other (See Below) Other Endocrine/Metabolic History: states "im not taking any medicine for diabetes" Hematologic History: Reports: None Immunologic History: Reports: None Oncologic (Cancer) History: Reports: None Dermatologic History: Reports: None - Infectious Disease History Infectious Disease History: Reports: Chicken Pox, Mumps - Past Surgical History HEENT Surgical History: Reports: Adenoidectomy, Tonsillectomy Cardiovascular Surgical History: Reports: Coronary Artery Stent Other Cardiovascular Surgeries/Procedures: Stent put in 4 years ago Male Surgical History: Reports: TURP-Transurethral Resection of Prostate, Other (See Below) Other Male Surgeries/Procedures: 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 Exam - Exam Exam: See Below - Vital Signs Vital Signs: Last Vital Signs Temp Pulse 81 12/07/18 16:13 Resp 18 12/07/18 16:13 BP 160/105 H 12/07/18 16:13 Pulse Ox 97 12/07/18 16:13 Weight: 99.79 kg - Exam General: Alert, Oriented, Cooperative HEENT: Mucosa Moist & [place] Lungs: Clear to Auscultation, Normal Respiratory Effort. No: Crackles, Wheezing Cardiovascular: Regular Rate, Regular Rhythm GI/Abdominal Exam: Normal Bowel Sounds, Soft, Non-Tender Extremities: Normal Inspection, Normal Range of Motion, No Pedal Edema Skin: Warm, Dry Neurological: Cranial Nerves Intact, Strength Equal Bilateral, Normal Speech, Sensation Intact Neuro Extensive - Mental Status: Alert, Oriented x3 - Patient Data Lab Results Last 24 hrs: Laboratory Results - last 24 hr 12/07/18 12/07/18 12/07/18 Range/Units 14:29 14:29 14:29 WBC 5.75 (4.0-11.0) K/uL RBC 4.65 (4.50-5.90) M/uL Hgb 14.8 (13.0-17.0) g/dL Hct 42.8 (38.0-50.0) % MCV 92.0 (80.0-98.0) fL MCH 31.8 (27.0-32.0) pg MCHC 34.6 (31.0-37.0) g/dL RDW Std Deviation 44.1 (28.0-62.0) fl RDW Coeff of Yazan 13 (11.0-15.0) % Plt Count 142 L (150-400) K/uL MPV 10.90 (7.40-12.00) fL Neut % (Auto) 48.2 (48.0-80.0) % Lymph % (Auto) 37.2 (16.0-40.0) % [place] % (Auto) 10.6 (0.0-15.0) % Eos % (Auto) 3.5 (0.0-7.0) % Baso % (Auto) 0.5 (0.0-1.5) % Neut # (Auto) 2.8 (1.4-5.7) K/uL Lymph # (Auto) 2.1 (0.6-2.4) K/uL [place] # (Auto) 0.6 (0.0-0.8) K/uL Eos # (Auto) 0.2 (0.0-0.7) K/uL Baso # (Auto) 0.0 (0.0-0.1) K/uL Nucleated RBC % 0.0 /100WBC Nucleated RBCs # 0 K/uL INR 0.96 Sodium 140 (136-148) mmol/L Potassium 4.7 (3.5-5.1) mmol/L Chloride 105 (98-107) mmol/L Carbon Dioxide 24.1 (21.0-32.0) mmol/L BUN 20 H (7.0-18.0) mg/dL Creatinine 1.0 (0.8-1.3) mg/dL Est Cr Clr Drug Dosing 80.83 mL/min Estimated GFR (MDRD) > 60.0 ml/min Glucose 227 H (74-106) mg/dL Calcium 9.3 (8.5-10.1) mg/dL Total Bilirubin 0.4 (0.2-1.0) mg/dL AST 27 (15-37) IU/L ALT 27 (14-63) IU/L Alkaline Phosphatase 90 (46-116) U/L Troponin I < 0.050 (0.000-0.056) ng/mL Total Protein 6.8 (6.4-8.2) g/dL Albumin 2.9 L (3.4-5.0) g/dL Globulin 3.9 (2.6-4.0) g/dL Albumin/Globulin Ratio 0.7 L (0.9-1.6) TSH 3rd Generation 0.90 (0.36-3.74) uIU/mL Result Diagrams: 12/07/18 14:29 12/07/18 14:29 Problem List Initiated/Reviewed/Updated: Yes Orders Last 24hrs: Active Orders 24 hr Category Date Time Status Admission Status [Patient Status] [ADT] Stat ADT 12/07/18 16:57 Active Patient Status [ADT] Routine ADT 12/07/18 16:55 Active Blood Glucose Check, Bedside [RC] WITHMEALSANDBED Care 12/07/18 16:55 Active Cardiac Monitoring [RC] . DIRECTED Care 12/07/18 14:30 Active EKG Documentation Completion [RC] STAT Care 12/07/18 14:30 Active Intake and Output [RC] Q12H Care 12/07/18 16:56 Active Oxygen Therapy [RC] PRN Care 12/07/18 16:55 Active Pulse Oximetry [RC] ASDIRECTED Care 12/07/18 14:30 Active Up ad Angeline [RC] ASDIRECTED Care 12/07/18 16:55 Active VTE/DVT Education [RC] PER UNIT ROUTINE Care 12/07/18 16:55 Active Vital Signs [RC] Q4H Care 12/07/18 16:55 Active [place] Diet [DIET] Diet 12/07/18 Dinner Active Ang Head [CT] Stat Exams 12/07/18 17:05 Ordered CTA Neck W & W/O Contrast [Ang Neck] [CT] Stat Exams 12/07/18 17:05 Ordered BASIC METABOLIC PANEL,BMP [CHEM] AM Lab 12/08/18 05:11 Ordered CBC W/O DIFF,HEMOGRAM [HEME] AM Lab 12/08/18 05:11 Ordered GLYCOSYLATED HEMOGLOBIN,HGBA1C [CHEM] Stat Lab 12/07/18 14:29 Received LIPID PANEL [CHEM] AM Lab 12/08/18 05:11 Ordered UA RFX ALLEN AND CULT IF INDIC [URIN] Stat Lab 12/07/18 14:32 Ordered Acetaminophen [Tylenol] Med 12/07/18 16:55 Active 650 mg PO Q4H PRN Acetaminophen/HYDROcodone [[place] 325-5 MG] Med 12/07/18 16:59 Active 1 tab PO Q4H PRN Aspirin Med 12/08/18 09:00 Active 81 mg PO DAILY Enoxaparin [Lovenox] Med 12/07/18 17:00 Active 40 mg SUBCUT Q24H Ibuprofen [Motrin] Med 12/07/18 16:55 Active 600 mg PO Q6H PRN Lisinopril [Prinivil] Med 12/08/18 09:00 Active 5 mg PO DAILY Metoprolol Succinate [Kapspargo Sprinkle] Med 12/07/18 21:00 Active 25 mg PO BID Morphine Med 12/07/18 16:55 Active 2 mg IVPUSH Q2H PRN Ondansetron [Zofran ODT] Med 12/07/18 16:55 Active 4 mg PO Q4H PRN Ondansetron [Zofran] Med 12/07/18 16:55 Active 4 mg IVPUSH Q4H PRN Sodium Chloride 0.9% [Normal Saline] 1,000 ml Med 12/07/18 14:45 Active IV STAT Sodium Chloride 0.9% [Saline Flush] Med 12/07/18 14:32 Active 10 ml FLUSH ASDIRECTED PRN Sodium Chloride 0.9% [Saline Flush] Med 12/07/18 14:32 Active 2.5 ml FLUSH ASDIRECTED PRN atorvaSTATin [Lipitor] Med 12/07/18 21:00 Active 40 mg PO BEDTIME Saline Lock Insert [OM.PC] Stat Oth 12/07/18 14:30 Ordered Resuscitation Status Routine Resus Stat 12/07/18 16:55 Ordered Medication Orders Acetaminophen (Tylenol) 650 mg PO Q4H PRN PRN Reason: Pain (Mild 1-3)/fever Hydrocodone Bitart/Acetaminophen ([place] 325-5 Mg) 1 tab PO Q4H PRN PRN Reason: Pain Aspirin (Aspirin) 81 mg PO DAILY [facility] Atorvastatin Calcium (Lipitor) 40 mg PO BEDTIME [facility] Enoxaparin Sodium (Lovenox) 40 mg SUBCUT Q24H [facility] Sodium Chloride (Normal Saline) 1,000 mls @ 125 mls/hr IV STAT MECHE Last Admin: 12/07/18 15:01 Dose: 125 mls/hr Ibuprofen (Motrin) 600 mg PO Q6H PRN PRN Reason: Pain (mild 1-3) Lisinopril (Prinivil) 5 mg PO DAILY [facility] Morphine Sulfate (Morphine) 2 mg IVPUSH Q2H PRN PRN Reason: Pain (severe 7-10) Stop: 12/08/18 16:59 Non-Formulary Medication (Metoprolol Succinate [Kapspargo Sprinkle]) 25 mg PO BID [facility] Ondansetron HCl (Zofran Odt) 4 mg PO Q4H PRN PRN Reason: nausea, able to take PO Ondansetron HCl (Zofran) 4 mg IVPUSH Q4H PRN PRN Reason: Nausea Sodium Chloride (Saline Flush) 10 ml FLUSH ASDIRECTED PRN PRN Reason: Keep Vein Open Sodium Chloride (Saline Flush) 2.5 ml FLUSH ASDIRECTED PRN PRN Reason: Keep Vein Open Assessment/Plan Comment:: A: 1. Transient ischemic attack 2. PMH CAD s/p stent placement, type 2 diabetes, hypertension P: 1. Ordered CTA neck and head. Serial troponins. Neurochecks Q6H. Will resume home meds. Suspect he will be ready for discharge tomorrow with order for outpatient Echo. Dispo:1-2 days <Get Moore - Last Filed: 12/07/18 18:38> H&P History of Present Illness - General Admit Problem/Dx: Admission Diagnosis/Problem Admission Diagnosis/Problem TIA, Transient ischemic attack I have examined the patient independently of rn medical surgical, Dr. Ace MD. I have discussed the case with him. I have reviewed and agree with the examination and plan as outlined by him. Please see orders. Exam - Vital Signs Vital Signs: Last Vital Signs Temp 35.8 C 12/07/18 17:56 Pulse 85 12/07/18 17:56 Resp 20 12/07/18 17:56 BP 157/86 H 12/07/18 18:00 Pulse Ox 97 12/07/18 16:13 - Patient Data Lab Results Last 24 hrs: Laboratory Results - last 24 hr 12/07/18 12/07/18 12/07/18 Range/Units 14:29 14:29 14:29 WBC 5.75 (4.0-11.0) K/uL RBC 4.65 (4.50-5.90) M/uL Hgb 14.8 (13.0-17.0) g/dL Hct 42.8 (38.0-50.0) % MCV 92.0 (80.0-98.0) fL MCH 31.8 (27.0-32.0) pg MCHC 34.6 (31.0-37.0) g/dL RDW Std Deviation 44.1 (28.0-62.0) fl RDW Coeff of Yazan 13 (11.0-15.0) % Plt Count 142 L (150-400) K/uL MPV 10.90 (7.40-12.00) fL Neut % (Auto) 48.2 (48.0-80.0) % Lymph % (Auto) 37.2 (16.0-40.0) % [place] % (Auto) 10.6 (0.0-15.0) % Eos % (Auto) 3.5 (0.0-7.0) % Baso % (Auto) 0.5 (0.0-1.5) % Neut # (Auto) 2.8 (1.4-5.7) K/uL Lymph # (Auto) 2.1 (0.6-2.4) K/uL [place] # (Auto) 0.6 (0.0-0.8) K/uL Eos # (Auto) 0.2 (0.0-0.7) K/uL Baso # (Auto) 0.0 (0.0-0.1) K/uL Nucleated RBC % 0.0 /100WBC Nucleated RBCs # 0 K/uL INR 0.96 Sodium 140 (136-148) mmol/L Potassium 4.7 (3.5-5.1) mmol/L Chloride 105 (98-107) mmol/L Carbon Dioxide 24.1 (21.0-32.0) mmol/L BUN 20 H (7.0-18.0) mg/dL Creatinine 1.0 (0.8-1.3) mg/dL Est Cr Clr Drug Dosing 80.83 mL/min Estimated GFR (MDRD) > 60.0 ml/min Glucose 227 H (74-106) mg/dL POC Glucose (60-110) mg/dL Hemoglobin A1c (4.5-6.2) % Calcium 9.3 (8.5-10.1) mg/dL Total Bilirubin 0.4 (0.2-1.0) mg/dL AST 27 (15-37) IU/L ALT 27 (14-63) IU/L Alkaline Phosphatase 90 (46-116) U/L Troponin I < 0.050 (0.000-0.056) ng/mL Total Protein 6.8 (6.4-8.2) g/dL Albumin 2.9 L (3.4-5.0) g/dL Globulin 3.9 (2.6-4.0) g/dL Albumin/Globulin Ratio 0.7 L (0.9-1.6) TSH 3rd Generation 0.90 (0.36-3.74) uIU/mL 12/07/18 12/07/18 Range/Units 14:29 18:16 WBC (4.0-11.0) K/uL RBC (4.50-5.90) M/uL Hgb (13.0-17.0) g/dL Hct (38.0-50.0) % MCV (80.0-98.0) fL MCH (27.0-32.0) pg MCHC (31.0-37.0) g/dL RDW Std Deviation (28.0-62.0) fl RDW Coeff of Yazan (11.0-15.0) % Plt Count (150-400) K/uL MPV (7.40-12.00) fL Neut % (Auto) (48.0-80.0) % Lymph % (Auto) (16.0-40.0) % [place] % (Auto) (0.0-15.0) % Eos % (Auto) (0.0-7.0) % Baso % (Auto) (0.0-1.5) % Neut # (Auto) (1.4-5.7) K/uL Lymph # (Auto) (0.6-2.4) K/uL [place] # (Auto) (0.0-0.8) K/uL Eos # (Auto) (0.0-0.7) K/uL Baso # (Auto) (0.0-0.1) K/uL Nucleated RBC % /100WBC Nucleated RBCs # K/uL INR Sodium (136-148) mmol/L Potassium (3.5-5.1) mmol/L Chloride (98-107) mmol/L Carbon Dioxide (21.0-32.0) mmol/L BUN (7.0-18.0) mg/dL Creatinine (0.8-1.3) mg/dL Est Cr Clr Drug Dosing mL/min Estimated GFR (MDRD) ml/min Glucose (74-106) mg/dL POC Glucose 216 H (60-110) mg/dL Hemoglobin A1c 11.0 H (4.5-6.2) % Calcium (8.5-10.1) mg/dL Total Bilirubin (0.2-1.0) mg/dL AST (15-37) IU/L ALT (14-63) IU/L Alkaline Phosphatase (46-116) U/L Troponin I (0.000-0.056) ng/mL Total Protein (6.4-8.2) g/dL Albumin (3.4-5.0) g/dL Globulin (2.6-4.0) g/dL Albumin/Globulin Ratio (0.9-1.6) TSH 3rd Generation (0.36-3.74) uIU/mL Result Diagrams: 12/07/18 14:29 12/07/18 14:29 Orders Last 24hrs: Active Orders 24 hr Category Date Time Status Admission Status [Patient Status] [ADT] Stat ADT 12/07/18 16:57 Active Patient Status [ADT] Routine ADT 12/07/18 16:55 Active Blood Glucose Check, Bedside [RC] WITHMEALSANDBED Care 12/07/18 16:55 Active Intake and Output [RC] Q12H Care 12/07/18 16:56 Active Neurological Monitoring [RC] Q6HR Care 12/07/18 17:44 Active Oxygen Therapy [RC] PRN Care 12/07/18 16:55 Active Telemetry Monitoring [Cardiac Monitoring] [RC] . Care 12/07/18 18:06 Active DIRECTED Up ad Angeline [RC] ASDIRECTED Care 12/07/18 16:55 Active VTE/DVT Education [RC] PER UNIT ROUTINE Care 12/07/18 16:55 Active Vital Signs [RC] Q4H Care 12/07/18 16:55 Active [place] Diet [DIET] Diet 12/07/18 Dinner Active Ang Head [CT] Stat Exams 12/07/18 17:05 Taken CTA Neck W & W/O Contrast [Ang Neck] [CT] Stat Exams 12/07/18 17:05 Ordered BASIC METABOLIC PANEL,BMP [CHEM] AM Lab 12/08/18 05:11 Ordered CBC W/O DIFF,HEMOGRAM [HEME] AM Lab 12/08/18 05:11 Ordered LIPID PANEL [CHEM] AM Lab 12/08/18 05:11 Ordered TROPONIN I [CHEM] Q6H Lab 12/07/18 21:00 Ordered TROPONIN I [CHEM] Q6H Lab 12/08/18 03:00 Ordered UA RFX ALLEN AND CULT IF INDIC [URIN] Stat Lab 12/07/18 14:32 Ordered Acetaminophen [Tylenol] Med 12/07/18 16:55 Active 650 mg PO Q4H PRN Acetaminophen/HYDROcodone [[place] 325-5 MG] Med 12/07/18 16:59 Active 1 tab PO Q4H PRN Aspirin Med 12/08/18 09:00 Active 81 mg PO DAILY Enoxaparin [Lovenox] Med 12/07/18 17:00 Active 40 mg SUBCUT Q24H Ibuprofen [Motrin] Med 12/07/18 16:55 Active 600 mg PO Q6H PRN Insulin Aspart [NovoLOG] Med 12/07/18 18:23 Active See Protocol SUBCUT TIDAC Insulin Glarg,Human.Rec.Analog [LantUS Solostar] Med 12/07/18 21:00 Active 20 units SUBCUT BEDTIME Lisinopril [Prinivil] Med 12/08/18 09:00 Active 5 mg PO DAILY Metoprolol Succinate [Kapspargo Sprinkle] Med 12/07/18 21:00 Active 25 mg PO BID Morphine Med 12/07/18 16:55 Active 2 mg IVPUSH Q2H PRN Ondansetron [Zofran ODT] Med 12/07/18 16:55 Active 4 mg PO Q4H PRN Ondansetron [Zofran] Med 12/07/18 16:55 Active 4 mg IVPUSH Q4H PRN Sodium Chloride 0.9% [Normal Saline] 1,000 ml Med 12/07/18 18:30 Active IV ASDIRECTED Sodium Chloride 0.9% [Saline Flush] Med 12/07/18 14:32 Active 10 ml FLUSH ASDIRECTED PRN Sodium Chloride 0.9% [Saline Flush] Med 12/07/18 14:32 Active 2.5 ml FLUSH ASDIRECTED PRN atorvaSTATin [Lipitor] Med 12/07/18 21:00 Active 40 mg PO BEDTIME Saline Lock Insert [OM.PC] Stat Oth 12/07/18 14:30 Ordered Resuscitation Status Routine Resus Stat 12/07/18 16:55 Ordered Medication Orders Acetaminophen (Tylenol) 650 mg PO Q4H PRN PRN Reason: Pain (Mild 1-3)/fever Hydrocodone Bitart/Acetaminophen ([place] 325-5 Mg) 1 tab PO Q4H PRN PRN Reason: Pain Aspirin (Aspirin) 81 mg PO DAILY [facility] Atorvastatin Calcium (Lipitor) 40 mg PO BEDTIME [facility] Enoxaparin Sodium (Lovenox) 40 mg SUBCUT Q24H [facility] Last Admin: 12/07/18 18:12 Dose: 40 mg Sodium Chloride (Normal Saline) 1,000 mls @ 125 mls/hr IV ASDIRECTED MECHE Last Admin: 12/07/18 18:29 Dose: 125 mls/hr Ibuprofen (Motrin) 600 mg PO Q6H PRN PRN Reason: Pain (mild 1-3) Insulin Aspart (Novolog) 0 unit SUBCUT TIDAC [facility]; Protocol Last Admin: 12/07/18 18:33 Dose: 6 units Insulin Glargine (Lantus Solostar) 20 units SUBCUT BEDTIME MEC[facility] Lisinopril (Prinivil) 5 mg PO DAILY [facility] Morphine Sulfate (Morphine) 2 mg IVPUSH Q2H PRN PRN Reason: Pain (severe 7-10) Stop: 12/08/18 16:59 Non-Formulary Medication (Metoprolol Succinate [Kapspargo Sprinkle]) 25 mg PO BID [facility] Ondansetron HCl (Zofran Odt) 4 mg PO Q4H PRN PRN Reason: nausea, able to take PO Ondansetron HCl (Zofran) 4 mg IVPUSH Q4H PRN PRN Reason: Nausea Sodium Chloride (Saline Flush) 10 ml FLUSH ASDIRECTED PRN PRN Reason: Keep Vein Open Sodium Chloride (Saline Flush) 2.5 ml FLUSH ASDIRECTED PRN PRN Reason: Keep Vein Open
[2018-12-07] MEDS: Sodium Chloride 0.9% 1,000 ML IV SCH (18:29)
[2018-12-07] MEDS: Insulin Aspart 100 Units/ML 3 ML Pen SUBCUT SCH (18:33)
[2018-12-07] MEDS ORDERED: Iopamidol 755 MG/ML 500 ML Multipack Bottle IVPUSH STA (18:34)
--- NOTE | 2018-12-07 19:22 | CT ---
INDICATION: TIA CT HEAD WITHOUT CONTRAST TECHNIQUE: Multiple axial CT images were performed through the head without intravenous contrast administration. COMPARISON: 2:40 pm 12/07/[address] FINDINGS: No acute intracranial hemorrhage is identified. No extra-axial collections are evident and there is no mass effect or midline shift. There is mild diffuse age-related brain atrophy. Ventricular size and configuration are within normal limits for the patient`s age. Diaz-white differentiation is within normal limits. Intracranial atherosclerotic vascular calcifications are noted. Osseous structures are within normal limits and no fractures are seen. Included portions of the paranasal sinuses and mastoid air cells are normally aerated. IMPRESSION: 1. No acute intracranial abnormality identified. 2. Mild age-related brain atrophy and intracranial atherosclerotic vascular calcifications. CASEY GREY MD [facility] Dictated by: Sukhdeep Grey MD @ 12/07/2018 19:21:27 (Electronically Signed)
[2018-12-07] MEDS: Metoprolol Succinate 25 MG Tab.ER PO SCH (20:48)
[2018-12-07] MEDS ORDERED: atorvaSTATin 40 MG Tab PO SCH (21:00)
[2018-12-07] MEDS ORDERED: METOPROLOL SUCCINATE 25 MG PO SCH (21:00)
[2018-12-07] MEDS ORDERED: Insulin Glargine,Human Rec. Analog 100 Units/ML 3 ML Pen SUBCUT SCH (21:00)
[2018-12-08] MEDS: Sodium Chloride 0.9% 1,000 ML IV SCH (02:28)
[2018-12-08 03:17] LABS: CHLORIDE,CL 106 mmol/L (98-107); SODIUM,NA 141 mmol/L (136-148)
[2018-12-08] MEDS ORDERED: Insulin Aspart 100 Units/ML 3 ML Pen SUBCUT SCH (07:30)
[2018-12-08] MEDS: Insulin Aspart 100 Units/ML 3 ML Pen SUBCUT SCH ×2 (08:29→12:51)
[2018-12-08] MEDS: Metoprolol Succinate 25 MG Tab.ER PO SCH (08:31)
[2018-12-08] MEDS ORDERED: Lisinopril 5 MG Tab PO SCH (09:00)
[2018-12-08] MEDS ORDERED: Aspirin 81 MG Tab.Chew PO SCH (09:00)
[2018-12-08] MEDS ORDERED: Iopamidol 755 MG/ML 200 ML Multipack Bottle IVPUSH ONE (09:09)
--- NOTE | 2018-12-08 10:27 | CT ---
INDICATION: Transient ischemic attack. TECHNIQUE: High resolution axial CT images acquired through the head and neck following rapid intravenous administration of iodinated contrast. Multiplanar MIPS of cranial and cervical vasculature performed. FINDINGS: CTA head: While there is heavy calcified plaque around both carotid siphons, there is normal filling of the intracranial vasculature; i.e. there is no large vessel occlusion or significant intracranial stenosis. There is no cerebral aneurysm or evidence for vascular malformation. The underlying brain parenchyma demonstrates age-appropriate volume loss and nonspecific white matter hypoattenuation commonly seen with chronic small vessel ischemic disease. CTA neck: Atherosclerotic plaque is present in the proximal internal carotid arteries bilaterally without significant stenosis. There is no significant vertebral artery stenosis or dissection. The soft tissues of the neck are within normal limits. The cervical spine is in normal alignment. Degenerative changes are noted in the cervical spine. The lung apices are clear. IMPRESSION: No large vessel occlusion. Carotid atherosclerotic disease without significant stenosis. Leonidas Gaines MD Neurointerventional Radiologist [facility] Please note that all CT scans at this facility use dose modulation, iterative reconstruction, and/or weight-based dosing when appropriate to reduce radiation dose to as low as reasonably achievable. Dictated by Leonidas Gaines MD @ Dec 08 2018 1:00PM Signed by Dr. Leonidas Gaines @ Dec 08 2018 1:00PM
--- NOTE | 2018-12-08 12:10 | PCM.DCSUM1 ---
<Andrew Christensen M - Last Filed: 12/08/18 12:05> Discharge Summary - Hospital Course Free Text/Narrative:: 63-year-old male admitted for TIA. He has a PMH of CAD s/p stents and type 2 diabetes mellitus. He presented to [facility] with complaints of trouble speaking that lasted about 5-10 minutes before spontaneously resolving. CXR was negative. CT head was negative for any intracranial bleed. CTA head was negative and CTA neck showed mild atherosclerotic changes. Troponins were trended and negative x3. Patient remained stable and asymptomatic throughout his hospital course. He will require out-patient ECHO. Clopidogrel 75 mg daily was added to his home medication regimen. He was instructed to follow-up with a neurologist and his PCP on discharge. - Discharge Data Discharge Date: 12/08/18 Discharge Disposition: Home, Self-Care 01 Condition: Stable - Patient Instructions Diet: Heart Healthy Diet, Diabetic Diet Notify Provider of: Fever, Increased Pain, Swelling and Redness, Drainage, Nausea and/or Vomiting - Discharge Plan *PRESCRIPTION DRUG MONITORING PROGRAM REVIEWED*: Not Applicable *COPY OF PRESCRIPTION DRUG MONITORING REPORT IN PATIENT HIRAL: Not Applicable Prescriptions/Med Rec: Clopidogrel [Plavix] 75 mg PO DAILY 30 Days #30 tablet Home Medications: Home Meds Metoprolol Succinate [[place] Sprinkle] 25 mg PO BID 10/21/18 [History] Aspirin 81 mg PO DAILY #30 tab.chew 10/22/18 [Rx] Lancets [Lancets Thin] 1 each QID #1 box 10/22/18 [Rx] Pen Needle, Diabetic [1St Tier Unifine Pentips Plus] 1 each QID #1 box [Rx] atorvaSTATin [Lipitor] 40 mg PO BEDTIME #30 tablet 10/22/18 [Rx] Insulin Aspart [NovoLOG] 10 unit SUBCUT .TIDWITHMEALS 12/07/18 [History] Insulin Glarg,Human.Rec.Analog [Lantus Solostar] 20 unit SUBCUT DAILY 12/07/18 [ History] Lisinopril 5 mg PO DAILY 12/07/18 [History] metFORMIN HCl [Metformin HCl] 500 mg PO BID 12/07/18 [History] Clopidogrel [Plavix] 75 mg PO DAILY 30 Days #30 tablet 12/08/18 [Rx] Forms: ED Department Discharge Referrals: PCP,Unknown [Ordering Only Provider] - - Discharge Summary/Plan Comment DC Time >30 min.: No - Patient Data Vitals - Most Recent: Last Vital Signs Temp 96.9 F 12/08/18 07:54 Pulse 76 12/08/18 08:31 Resp 18 12/08/18 07:54 BP 135/72 12/08/18 09:00 Pulse Ox 96 12/08/18 07:54 Weight - Most Recent: 110.359 kg I&O - Last 24 hours: Intake & Output 12/07/18 12/08/18 12/08/18 22:59 06:59 14:59 Intake Total 1541 Output Total 925 Balance 616 Lab Results - Last 24 hrs: Laboratory Results - last 24 hr 12/07/18 12/07/18 12/07/18 Range/Units 14:29 14:29 14:29 WBC 5.75 (4.0-11.0) K/uL RBC 4.65 (4.50-5.90) M/uL Hgb 14.8 (13.0-17.0) g/dL Hct 42.8 (38.0-50.0) % MCV 92.0 (80.0-98.0) fL MCH 31.8 (27.0-32.0) pg MCHC 34.6 (31.0-37.0) g/dL RDW Std Deviation 44.1 (28.0-62.0) fl RDW Coeff of Yazan 13 (11.0-15.0) % Plt Count 142 L (150-400) K/uL MPV 10.90 (7.40-12.00) fL Neut % (Auto) 48.2 (48.0-80.0) % Lymph % (Auto) 37.2 (16.0-40.0) % [place] % (Auto) 10.6 (0.0-15.0) % Eos % (Auto) 3.5 (0.0-7.0) % Baso % (Auto) 0.5 (0.0-1.5) % Neut # (Auto) 2.8 (1.4-5.7) K/uL Lymph # (Auto) 2.1 (0.6-2.4) K/uL [place] # (Auto) 0.6 (0.0-0.8) K/uL Eos # (Auto) 0.2 (0.0-0.7) K/uL Baso # (Auto) 0.0 (0.0-0.1) K/uL Nucleated RBC % 0.0 /100WBC Nucleated RBCs # 0 K/uL INR 0.96 Sodium 140 (136-148) mmol/L Potassium 4.7 (3.5-5.1) mmol/L Chloride 105 (98-107) mmol/L Carbon Dioxide 24.1 (21.0-32.0) mmol/L BUN 20 H (7.0-18.0) mg/dL Creatinine 1.0 (0.8-1.3) mg/dL Est Cr Clr Drug Dosing 80.83 mL/min Estimated GFR (MDRD) > 60.0 ml/min Glucose 227 H (74-106) mg/dL POC Glucose (60-110) mg/dL Hemoglobin A1c (4.5-6.2) % Calcium 9.3 (8.5-10.1) mg/dL Total Bilirubin 0.4 (0.2-1.0) mg/dL AST 27 (15-37) IU/L ALT 27 (14-63) IU/L Alkaline Phosphatase 90 (46-116) U/L Troponin I < 0.050 (0.000-0.056) ng/mL Total Protein 6.8 (6.4-8.2) g/dL Albumin 2.9 L (3.4-5.0) g/dL Globulin 3.9 (2.6-4.0) g/dL Albumin/Globulin Ratio 0.7 L (0.9-1.6) Triglycerides (0-200) mg/dL Cholesterol (50-200) mg/dL LDL Cholesterol, Calc (60-180) mg/dL VLDL Cholesterol (5-55) mg/dL HDL Cholesterol (40-60) mg/dL Cholesterol/HDL Ratio (3.3-6.0) TSH 3rd Generation 0.90 (0.36-3.74) uIU/mL Urine Color Urine Appearance Urine pH (5.0-8.0) Ur Specific [place] (1.001-1.035) Urine Protein (NEGATIVE) mg/dL Urine Glucose (UA) (NEGATIVE) mg/dL Urine Ketones (NEGATIVE) mg/dL Urine Occult Blood (NEGATIVE) Urine Nitrite (NEGATIVE) Urine Bilirubin (NEGATIVE) Urine Urobilinogen (<2.0) EU/dL Ur Leukocyte Esterase (NEGATIVE) 12/07/18 12/07/18 12/07/18 Range/Units 14:29 18:16 19:10 WBC (4.0-11.0) K/uL RBC (4.50-5.90) M/uL Hgb (13.0-17.0) g/dL Hct (38.0-50.0) % MCV (80.0-98.0) fL MCH (27.0-32.0) pg MCHC (31.0-37.0) g/dL RDW Std Deviation (28.0-62.0) fl RDW Coeff of Yazan (11.0-15.0) % Plt Count (150-400) K/uL MPV (7.40-12.00) fL Neut % (Auto) (48.0-80.0) % Lymph % (Auto) (16.0-40.0) % [place] % (Auto) (0.0-15.0) % Eos % (Auto) (0.0-7.0) % Baso % (Auto) (0.0-1.5) % Neut # (Auto) (1.4-5.7) K/uL Lymph # (Auto) (0.6-2.4) K/uL [place] # (Auto) (0.0-0.8) K/uL Eos # (Auto) (0.0-0.7) K/uL Baso # (Auto) (0.0-0.1) K/uL Nucleated RBC % /100WBC Nucleated RBCs # K/uL INR Sodium (136-148) mmol/L Potassium (3.5-5.1) mmol/L Chloride (98-107) mmol/L Carbon Dioxide (21.0-32.0) mmol/L BUN (7.0-18.0) mg/dL Creatinine (0.8-1.3) mg/dL Est Cr Clr Drug Dosing mL/min Estimated GFR (MDRD) ml/min Glucose (74-106) mg/dL POC Glucose 216 H (60-110) mg/dL Hemoglobin A1c 11.0 H (4.5-6.2) % Calcium (8.5-10.1) mg/dL Total Bilirubin (0.2-1.0) mg/dL AST (15-37) IU/L ALT (14-63) IU/L Alkaline Phosphatase (46-116) U/L Troponin I (0.000-0.056) ng/mL Total Protein (6.4-8.2) g/dL Albumin (3.4-5.0) g/dL Globulin (2.6-4.0) g/dL Albumin/Globulin Ratio (0.9-1.6) Triglycerides (0-200) mg/dL Cholesterol (50-200) mg/dL LDL Cholesterol, Calc (60-180) mg/dL VLDL Cholesterol (5-55) mg/dL HDL Cholesterol (40-60) mg/dL Cholesterol/HDL Ratio (3.3-6.0) TSH 3rd Generation (0.36-3.74) uIU/mL Urine Color YELLOW Urine Appearance HAZY Urine pH 6.0 (5.0-8.0) Ur Specific [place] 1.020 (1.001-1.035) Urine Protein NEGATIVE (NEGATIVE) mg/dL Urine Glucose (UA) 500 H (NEGATIVE) mg/dL Urine Ketones TRACE H (NEGATIVE) mg/dL Urine Occult Blood NEGATIVE (NEGATIVE) Urine Nitrite NEGATIVE (NEGATIVE) Urine Bilirubin NEGATIVE (NEGATIVE) Urine Urobilinogen 0.2 (<2.0) EU/dL Ur Leukocyte Esterase NEGATIVE (NEGATIVE) 12/07/18 12/08/18 12/08/18 Range/Units 20:23 02:50 02:50 WBC 5.42 (4.0-11.0) K/uL RBC 4.12 L (4.50-5.90) M/uL Hgb 12.9 L (13.0-17.0) g/dL Hct 38.3 (38.0-50.0) % MCV 93.0 (80.0-98.0) fL MCH 31.3 (27.0-32.0) pg MCHC 33.7 (31.0-37.0) g/dL RDW Std Deviation 44.8 (28.0-62.0) fl RDW Coeff of Yazan 13 (11.0-15.0) % Plt Count 148 L (150-400) K/uL MPV 9.50 (7.40-12.00) fL Neut % (Auto) (48.0-80.0) % Lymph % (Auto) (16.0-40.0) % [place] % (Auto) (0.0-15.0) % Eos % (Auto) (0.0-7.0) % Baso % (Auto) (0.0-1.5) % Neut # (Auto) (1.4-5.7) K/uL Lymph # (Auto) (0.6-2.4) K/uL [place] # (Auto) (0.0-0.8) K/uL Eos # (Auto) (0.0-0.7) K/uL Baso # (Auto) (0.0-0.1) K/uL Nucleated RBC % 0.0 /100WBC Nucleated RBCs # 0 K/uL INR Sodium 141 (136-148) mmol/L Potassium 4.5 (3.5-5.1) mmol/L Chloride 106 (98-107) mmol/L Carbon Dioxide 27.4 (21.0-32.0) mmol/L BUN 15 (7.0-18.0) mg/dL Creatinine 1.0 (0.8-1.3) mg/dL Est Cr Clr Drug Dosing 80.83 mL/min Estimated GFR (MDRD) > 60.0 ml/min Glucose 208 H (74-106) mg/dL POC Glucose 242 H (60-110) mg/dL Hemoglobin A1c (4.5-6.2) % Calcium 8.7 (8.5-10.1) mg/dL Total Bilirubin (0.2-1.0) mg/dL AST (15-37) IU/L ALT (14-63) IU/L Alkaline Phosphatase (46-116) U/L Troponin I (0.000-0.056) ng/mL Total Protein (6.4-8.2) g/dL Albumin (3.4-5.0) g/dL Globulin (2.6-4.0) g/dL Albumin/Globulin Ratio (0.9-1.6) Triglycerides 130 (0-200) mg/dL Cholesterol 187 (50-200) mg/dL LDL Cholesterol, Calc 126 (60-180) mg/dL VLDL Cholesterol 26 (5-55) mg/dL HDL Cholesterol 35 L (40-60) mg/dL Cholesterol/HDL Ratio 5.3 (3.3-6.0) TSH 3rd Generation (0.36-3.74) uIU/mL Urine Color Urine Appearance Urine pH (5.0-8.0) Ur Specific [place] (1.001-1.035) Urine Protein (NEGATIVE) mg/dL Urine Glucose (UA) (NEGATIVE) mg/dL Urine Ketones (NEGATIVE) mg/dL Urine Occult Blood (NEGATIVE) Urine Nitrite (NEGATIVE) Urine Bilirubin (NEGATIVE) Urine Urobilinogen (<2.0) EU/dL Ur Leukocyte Esterase (NEGATIVE) 12/08/18 12/08/18 12/08/18 Range/Units 02:50 06:03 08:44 WBC (4.0-11.0) K/uL RBC (4.50-5.90) M/uL Hgb (13.0-17.0) g/dL Hct (38.0-50.0) % MCV (80.0-98.0) fL MCH (27.0-32.0) pg MCHC (31.0-37.0) g/dL RDW Std Deviation (28.0-62.0) fl RDW Coeff of Yazan (11.0-15.0) % Plt Count (150-400) K/uL MPV (7.40-12.00) fL Neut % (Auto) (48.0-80.0) % Lymph % (Auto) (16.0-40.0) % [place] % (Auto) (0.0-15.0) % Eos % (Auto) (0.0-7.0) % Baso % (Auto) (0.0-1.5) % Neut # (Auto) (1.4-5.7) K/uL Lymph # (Auto) (0.6-2.4) K/uL [place] # (Auto) (0.0-0.8) K/uL Eos # (Auto) (0.0-0.7) K/uL Baso # (Auto) (0.0-0.1) K/uL Nucleated RBC % /100WBC Nucleated RBCs # K/uL INR Sodium (136-148) mmol/L Potassium (3.5-5.1) mmol/L Chloride (98-107) mmol/L Carbon Dioxide (21.0-32.0) mmol/L BUN (7.0-18.0) mg/dL Creatinine (0.8-1.3) mg/dL Est Cr Clr Drug Dosing mL/min Estimated GFR (MDRD) ml/min Glucose (74-106) mg/dL POC Glucose 205 H (60-110) mg/dL Hemoglobin A1c (4.5-6.2) % Calcium (8.5-10.1) mg/dL Total Bilirubin (0.2-1.0) mg/dL AST (15-37) IU/L ALT (14-63) IU/L Alkaline Phosphatase (46-116) U/L Troponin I < 0.050 < 0.050 (0.000-0.056) ng/mL Total Protein (6.4-8.2) g/dL Albumin (3.4-5.0) g/dL Globulin (2.6-4.0) g/dL Albumin/Globulin Ratio (0.9-1.6) Triglycerides (0-200) mg/dL Cholesterol (50-200) mg/dL LDL Cholesterol, Calc (60-180) mg/dL VLDL Cholesterol (5-55) mg/dL HDL Cholesterol (40-60) mg/dL Cholesterol/HDL Ratio (3.3-6.0) TSH 3rd Generation (0.36-3.74) uIU/mL Urine Color Urine Appearance Urine pH (5.0-8.0) Ur Specific [place] (1.001-1.035) Urine Protein (NEGATIVE) mg/dL Urine Glucose (UA) (NEGATIVE) mg/dL Urine Ketones (NEGATIVE) mg/dL Urine Occult Blood (NEGATIVE) Urine Nitrite (NEGATIVE) Urine Bilirubin (NEGATIVE) Urine Urobilinogen (<2.0) EU/dL Ur Leukocyte Esterase (NEGATIVE) Med Orders - Current: Current Medications Acetaminophen (Tylenol) 650 mg PO Q4H PRN PRN Reason: Pain (Mild 1-3)/fever Hydrocodone Bitart/Acetaminophen ([place] 325-5 Mg) 1 tab PO Q4H PRN PRN Reason: Pain Aspirin (Aspirin) 81 mg PO DAILY [facility] Last Admin: 12/08/18 08:32 Dose: 81 mg Atorvastatin Calcium (Lipitor) 40 mg PO BEDTIME [facility] Last Admin: 12/07/18 20:48 Dose: 40 mg Enoxaparin Sodium (Lovenox) 40 mg SUBCUT Q24H [facility] Last Admin: 12/07/18 18:12 Dose: 40 mg Sodium Chloride (Normal Saline) 1,000 mls @ 125 mls/hr IV ASDIRECTED [facility] Last Admin: 12/08/18 02:28 Dose: 125 mls/hr Ibuprofen (Motrin) 600 mg PO Q6H PRN PRN Reason: Pain (mild 1-3) Insulin Aspart (Novolog) 0 unit SUBCUT TIDAC [facility]; Protocol Last Admin: 12/08/18 08:29 Dose: 6 units Insulin Glargine (Lantus Solostar) 20 units SUBCUT BEDTIME [facility] Last Admin: 12/07/18 20:49 Dose: 20 units Lisinopril (Prinivil) 5 mg PO DAILY [facility] Last Admin: 12/08/18 08:32 Dose: 5 mg Metoprolol Succinate (Toprol Xl) 25 mg PO BID [facility] Last Admin: 12/08/18 08:31 Dose: 25 mg Morphine Sulfate (Morphine) 2 mg IVPUSH Q2H PRN PRN Reason: Pain (severe 7-10) Stop: 12/08/18 16:59 Ondansetron HCl (Zofran Odt) 4 mg PO Q4H PRN PRN Reason: nausea, able to take PO Ondansetron HCl (Zofran) 4 mg IVPUSH Q4H PRN PRN Reason: Nausea Sodium Chloride (Saline Flush) 10 ml FLUSH ASDIRECTED PRN PRN Reason: Keep Vein Open Sodium Chloride (Saline Flush) 2.5 ml FLUSH ASDIRECTED PRN PRN Reason: Keep Vein Open Discontinued Medications Aspirin (Aspirin) 324 mg PO ONETIME ONE Stop: 12/07/18 17:07 Last Admin: 12/07/18 18:13 Dose: 324 mg Sodium Chloride (Normal Saline) 1,000 mls @ 125 mls/hr IV STAT [facility] Last Admin: 12/07/18 15:01 Dose: 125 mls/hr Insulin Aspart (Novolog) 0 unit SUBCUT TIDAC [facility]; Protocol Iopamidol (Isovue Multipack-370 (76%)) 100 ml IVPUSH ONETIME STA Stop: 12/07/18 18:35 Last Admin: 12/07/18 18:35 Dose: 100 ml Iopamidol (Isovue Multipack-370 (76%)) 100 ml IVPUSH ONETIME ONE Stop: 12/08/18 09:10 Last Admin: 12/08/18 09:10 Dose: 100 ml <Get Moore - Last Filed: 12/08/18 12:43> Discharge Summary - Hospital Course Free Text/Narrative:: I have examined the patient independently of medical claims examiner, Dr. Fermin MD. I have discussed the case with him. I have reviewed and agree with the examination and plan as outlined by him. Please see orders. - Patient Data Vitals - Most Recent: Last Vital Signs Temp 36.1 C 12/08/18 07:54 Pulse 76 12/08/18 08:31 Resp 18 12/08/18 07:54 BP 135/72 12/08/18 09:00 Pulse Ox 96 12/08/18 07:54 I&O - Last 24 hours: Intake & Output 12/07/18 12/08/18 12/08/18 22:59 06:59 14:59 Intake Total 1541 Output Total 925 Balance 616 Lab Results - Last 24 hrs: Laboratory Results - last 24 hr 12/07/18 12/07/18 12/07/18 Range/Units 14:29 14:29 14:29 WBC 5.75 (4.0-11.0) K/uL RBC 4.65 (4.50-5.90) M/uL Hgb 14.8 (13.0-17.0) g/dL Hct 42.8 (38.0-50.0) % MCV 92.0 (80.0-98.0) fL MCH 31.8 (27.0-32.0) pg MCHC 34.6 (31.0-37.0) g/dL RDW Std Deviation 44.1 (28.0-62.0) fl RDW Coeff of Yazan 13 (11.0-15.0) % Plt Count 142 L (150-400) K/uL MPV 10.90 (7.40-12.00) fL Neut % (Auto) 48.2 (48.0-80.0) % Lymph % (Auto) 37.2 (16.0-40.0) % [place] % (Auto) 10.6 (0.0-15.0) % Eos % (Auto) 3.5 (0.0-7.0) % Baso % (Auto) 0.5 (0.0-1.5) % Neut # (Auto) 2.8 (1.4-5.7) K/uL Lymph # (Auto) 2.1 (0.6-2.4) K/uL [place] # (Auto) 0.6 (0.0-0.8) K/uL Eos # (Auto) 0.2 (0.0-0.7) K/uL Baso # (Auto) 0.0 (0.0-0.1) K/uL Nucleated RBC % 0.0 /100WBC Nucleated RBCs # 0 K/uL INR 0.96 Sodium 140 (136-148) mmol/L Potassium 4.7 (3.5-5.1) mmol/L Chloride 105 (98-107) mmol/L Carbon Dioxide 24.1 (21.0-32.0) mmol/L BUN 20 H (7.0-18.0) mg/dL Creatinine 1.0 (0.8-1.3) mg/dL Est Cr Clr Drug Dosing 80.83 mL/min Estimated GFR (MDRD) > 60.0 ml/min Glucose 227 H (74-106) mg/dL POC Glucose (60-110) mg/dL Hemoglobin A1c (4.5-6.2) % Calcium 9.3 (8.5-10.1) mg/dL Total Bilirubin 0.4 (0.2-1.0) mg/dL AST 27 (15-37) IU/L ALT 27 (14-63) IU/L Alkaline Phosphatase 90 (46-116) U/L Troponin I < 0.050 (0.000-0.056) ng/mL Total Protein 6.8 (6.4-8.2) g/dL Albumin 2.9 L (3.4-5.0) g/dL Globulin 3.9 (2.6-4.0) g/dL Albumin/Globulin Ratio 0.7 L (0.9-1.6) Triglycerides (0-200) mg/dL Cholesterol (50-200) mg/dL LDL Cholesterol, Calc (60-180) mg/dL VLDL Cholesterol (5-55) mg/dL HDL Cholesterol (40-60) mg/dL Cholesterol/HDL Ratio (3.3-6.0) TSH 3rd Generation 0.90 (0.36-3.74) uIU/mL Urine Color Urine Appearance Urine pH (5.0-8.0) Ur Specific [place] (1.001-1.035) Urine Protein (NEGATIVE) mg/dL Urine Glucose (UA) (NEGATIVE) mg/dL Urine Ketones (NEGATIVE) mg/dL Urine Occult Blood (NEGATIVE) Urine Nitrite (NEGATIVE) Urine Bilirubin (NEGATIVE) Urine Urobilinogen (<2.0) EU/dL Ur Leukocyte Esterase (NEGATIVE) 12/07/18 12/07/18 12/07/18 Range/Units 14:29 18:16 19:10 WBC (4.0-11.0) K/uL RBC (4.50-5.90) M/uL Hgb (13.0-17.0) g/dL Hct (38.0-50.0) % MCV (80.0-98.0) fL MCH (27.0-32.0) pg MCHC (31.0-37.0) g/dL RDW Std Deviation (28.0-62.0) fl RDW Coeff of Yazan (11.0-15.0) % Plt Count (150-400) K/uL MPV (7.40-12.00) fL Neut % (Auto) (48.0-80.0) % Lymph % (Auto) (16.0-40.0) % [place] % (Auto) (0.0-15.0) % Eos % (Auto) (0.0-7.0) % Baso % (Auto) (0.0-1.5) % Neut # (Auto) (1.4-5.7) K/uL Lymph # (Auto) (0.6-2.4) K/uL [place] # (Auto) (0.0-0.8) K/uL Eos # (Auto) (0.0-0.7) K/uL Baso # (Auto) (0.0-0.1) K/uL Nucleated RBC % /100WBC Nucleated RBCs # K/uL INR Sodium (136-148) mmol/L Potassium (3.5-5.1) mmol/L Chloride (98-107) mmol/L Carbon Dioxide (21.0-32.0) mmol/L BUN (7.0-18.0) mg/dL Creatinine (0.8-1.3) mg/dL Est Cr Clr Drug Dosing mL/min Estimated GFR (MDRD) ml/min Glucose (74-106) mg/dL POC Glucose 216 H (60-110) mg/dL Hemoglobin A1c 11.0 H (4.5-6.2) % Calcium (8.5-10.1) mg/dL Total Bilirubin (0.2-1.0) mg/dL AST (15-37) IU/L ALT (14-63) IU/L Alkaline Phosphatase (46-116) U/L Troponin I (0.000-0.056) ng/mL Total Protein (6.4-8.2) g/dL Albumin (3.4-5.0) g/dL Globulin (2.6-4.0) g/dL Albumin/Globulin Ratio (0.9-1.6) Triglycerides (0-200) mg/dL Cholesterol (50-200) mg/dL LDL Cholesterol, Calc (60-180) mg/dL VLDL Cholesterol (5-55) mg/dL HDL Cholesterol (40-60) mg/dL Cholesterol/HDL Ratio (3.3-6.0) TSH 3rd Generation (0.36-3.74) uIU/mL Urine Color YELLOW Urine Appearance HAZY Urine pH 6.0 (5.0-8.0) Ur Specific [place] 1.020 (1.001-1.035) Urine Protein NEGATIVE (NEGATIVE) mg/dL Urine Glucose (UA) 500 H (NEGATIVE) mg/dL Urine Ketones TRACE H (NEGATIVE) mg/dL Urine Occult Blood NEGATIVE (NEGATIVE) Urine Nitrite NEGATIVE (NEGATIVE) Urine Bilirubin NEGATIVE (NEGATIVE) Urine Urobilinogen 0.2 (<2.0) EU/dL Ur Leukocyte Esterase NEGATIVE (NEGATIVE) 12/07/18 12/08/18 12/08/18 Range/Units 20:23 02:50 02:50 WBC 5.42 (4.0-11.0) K/uL RBC 4.12 L (4.50-5.90) M/uL Hgb 12.9 L (13.0-17.0) g/dL Hct 38.3 (38.0-50.0) % MCV 93.0 (80.0-98.0) fL MCH 31.3 (27.0-32.0) pg MCHC 33.7 (31.0-37.0) g/dL RDW Std Deviation 44.8 (28.0-62.0) fl RDW Coeff of Yazan 13 (11.0-15.0) % Plt Count 148 L (150-400) K/uL MPV 9.50 (7.40-12.00) fL Neut % (Auto) (48.0-80.0) % Lymph % (Auto) (16.0-40.0) % [place] % (Auto) (0.0-15.0) % Eos % (Auto) (0.0-7.0) % Baso % (Auto) (0.0-1.5) % Neut # (Auto) (1.4-5.7) K/uL Lymph # (Auto) (0.6-2.4) K/uL [place] # (Auto) (0.0-0.8) K/uL Eos # (Auto) (0.0-0.7) K/uL Baso # (Auto) (0.0-0.1) K/uL Nucleated RBC % 0.0 /100WBC Nucleated RBCs # 0 K/uL INR Sodium 141 (136-148) mmol/L Potassium 4.5 (3.5-5.1) mmol/L Chloride 106 (98-107) mmol/L Carbon Dioxide 27.4 (21.0-32.0) mmol/L BUN 15 (7.0-18.0) mg/dL Creatinine 1.0 (0.8-1.3) mg/dL Est Cr Clr Drug Dosing 80.83 mL/min Estimated GFR (MDRD) > 60.0 ml/min Glucose 208 H (74-106) mg/dL POC Glucose 242 H (60-110) mg/dL Hemoglobin A1c (4.5-6.2) % Calcium 8.7 (8.5-10.1) mg/dL Total Bilirubin (0.2-1.0) mg/dL AST (15-37) IU/L ALT (14-63) IU/L Alkaline Phosphatase (46-116) U/L Troponin I (0.000-0.056) ng/mL Total Protein (6.4-8.2) g/dL Albumin (3.4-5.0) g/dL Globulin (2.6-4.0) g/dL Albumin/Globulin Ratio (0.9-1.6) Triglycerides 130 (0-200) mg/dL Cholesterol 187 (50-200) mg/dL LDL Cholesterol, Calc 126 (60-180) mg/dL VLDL Cholesterol 26 (5-55) mg/dL HDL Cholesterol 35 L (40-60) mg/dL Cholesterol/HDL Ratio 5.3 (3.3-6.0) TSH 3rd Generation (0.36-3.74) uIU/mL Urine Color Urine Appearance Urine pH (5.0-8.0) Ur Specific [place] (1.001-1.035) Urine Protein (NEGATIVE) mg/dL Urine Glucose (UA) (NEGATIVE) mg/dL Urine Ketones (NEGATIVE) mg/dL Urine Occult Blood (NEGATIVE) Urine Nitrite (NEGATIVE) Urine Bilirubin (NEGATIVE) Urine Urobilinogen (<2.0) EU/dL Ur Leukocyte Esterase (NEGATIVE) 12/08/18 12/08/18 12/08/18 Range/Units 02:50 06:03 08:44 WBC (4.0-11.0) K/uL RBC (4.50-5.90) M/uL Hgb (13.0-17.0) g/dL Hct (38.0-50.0) % MCV (80.0-98.0) fL MCH (27.0-32.0) pg MCHC (31.0-37.0) g/dL RDW Std Deviation (28.0-62.0) fl RDW Coeff of Yazan (11.0-15.0) % Plt Count (150-400) K/uL MPV (7.40-12.00) fL Neut % (Auto) (48.0-80.0) % Lymph % (Auto) (16.0-40.0) % [place] % (Auto) (0.0-15.0) % Eos % (Auto) (0.0-7.0) % Baso % (Auto) (0.0-1.5) % Neut # (Auto) (1.4-5.7) K/uL Lymph # (Auto) (0.6-2.4) K/uL [place] # (Auto) (0.0-0.8) K/uL Eos # (Auto) (0.0-0.7) K/uL Baso # (Auto) (0.0-0.1) K/uL Nucleated RBC % /100WBC Nucleated RBCs # K/uL INR Sodium (136-148) mmol/L Potassium (3.5-5.1) mmol/L Chloride (98-107) mmol/L Carbon Dioxide (21.0-32.0) mmol/L BUN (7.0-18.0) mg/dL Creatinine (0.8-1.3) mg/dL Est Cr Clr Drug Dosing mL/min Estimated GFR (MDRD) ml/min Glucose (74-106) mg/dL POC Glucose 205 H (60-110) mg/dL Hemoglobin A1c (4.5-6.2) % Calcium (8.5-10.1) mg/dL Total Bilirubin (0.2-1.0) mg/dL AST (15-37) IU/L ALT (14-63) IU/L Alkaline Phosphatase (46-116) U/L Troponin I < 0.050 < 0.050 (0.000-0.056) ng/mL Total Protein (6.4-8.2) g/dL Albumin (3.4-5.0) g/dL Globulin (2.6-4.0) g/dL Albumin/Globulin Ratio (0.9-1.6) Triglycerides (0-200) mg/dL Cholesterol (50-200) mg/dL LDL Cholesterol, Calc (60-180) mg/dL VLDL Cholesterol (5-55) mg/dL HDL Cholesterol (40-60) mg/dL Cholesterol/HDL Ratio (3.3-6.0) TSH 3rd Generation (0.36-3.74) uIU/mL Urine Color Urine Appearance Urine pH (5.0-8.0) Ur Specific [place] (1.001-1.035) Urine Protein (NEGATIVE) mg/dL Urine Glucose (UA) (NEGATIVE) mg/dL Urine Ketones (NEGATIVE) mg/dL Urine Occult Blood (NEGATIVE) Urine Nitrite (NEGATIVE) Urine Bilirubin (NEGATIVE) Urine Urobilinogen (<2.0) EU/dL Ur Leukocyte Esterase (NEGATIVE) 12/08/18 Range/Units 12:15 WBC (4.0-11.0) K/uL RBC (4.50-5.90) M/uL Hgb (13.0-17.0) g/dL Hct (38.0-50.0) % MCV (80.0-98.0) fL MCH (27.0-32.0) pg MCHC (31.0-37.0) g/dL RDW Std Deviation (28.0-62.0) fl RDW Coeff of Yazan (11.0-15.0) % Plt Count (150-400) K/uL MPV (7.40-12.00) fL Neut % (Auto) (48.0-80.0) % Lymph % (Auto) (16.0-40.0) % [place] % (Auto) (0.0-15.0) % Eos % (Auto) (0.0-7.0) % Baso % (Auto) (0.0-1.5) % Neut # (Auto) (1.4-5.7) K/uL Lymph # (Auto) (0.6-2.4) K/uL [place] # (Auto) (0.0-0.8) K/uL Eos # (Auto) (0.0-0.7) K/uL Baso # (Auto) (0.0-0.1) K/uL Nucleated RBC % /100WBC Nucleated RBCs # K/uL INR Sodium (136-148) mmol/L Potassium (3.5-5.1) mmol/L Chloride (98-107) mmol/L Carbon Dioxide (21.0-32.0) mmol/L BUN (7.0-18.0) mg/dL Creatinine (0.8-1.3) mg/dL Est Cr Clr Drug Dosing mL/min Estimated GFR (MDRD) ml/min Glucose (74-106) mg/dL POC Glucose 220 H (60-110) mg/dL Hemoglobin A1c (4.5-6.2) % Calcium (8.5-10.1) mg/dL Total Bilirubin (0.2-1.0) mg/dL AST (15-37) IU/L ALT (14-63) IU/L Alkaline Phosphatase (46-116) U/L Troponin I (0.000-0.056) ng/mL Total Protein (6.4-8.2) g/dL Albumin (3.4-5.0) g/dL Globulin (2.6-4.0) g/dL Albumin/Globulin Ratio (0.9-1.6) Triglycerides (0-200) mg/dL Cholesterol (50-200) mg/dL LDL Cholesterol, Calc (60-180) mg/dL VLDL Cholesterol (5-55) mg/dL HDL Cholesterol (40-60) mg/dL Cholesterol/HDL Ratio (3.3-6.0) TSH 3rd Generation (0.36-3.74) uIU/mL Urine Color Urine Appearance Urine pH (5.0-8.0) Ur Specific [place] (1.001-1.035) Urine Protein (NEGATIVE) mg/dL Urine Glucose (UA) (NEGATIVE) mg/dL Urine Ketones (NEGATIVE) mg/dL Urine Occult Blood (NEGATIVE) Urine Nitrite (NEGATIVE) Urine Bilirubin (NEGATIVE) Urine Urobilinogen (<2.0) EU/dL Ur Leukocyte Esterase (NEGATIVE) Med Orders - Current: Current Medications Acetaminophen (Tylenol) 650 mg PO Q4H PRN PRN Reason: Pain (Mild 1-3)/fever Hydrocodone Bitart/Acetaminophen ([place] 325-5 Mg) 1 tab PO Q4H PRN PRN Reason: Pain Aspirin (Aspirin) 81 mg PO DAILY [facility] Last Admin: 12/08/18 08:32 Dose: 81 mg Atorvastatin Calcium (Lipitor) 40 mg PO BEDTIME [facility] Last Admin: 12/07/18 20:48 Dose: 40 mg Enoxaparin Sodium (Lovenox) 40 mg SUBCUT Q24H [facility] Last Admin: 12/07/18 18:12 Dose: 40 mg Sodium Chloride (Normal Saline) 1,000 mls @ 125 mls/hr IV ASDIRECTED [facility] Last Admin: 12/08/18 02:28 Dose: 125 mls/hr Ibuprofen (Motrin) 600 mg PO Q6H PRN PRN Reason: Pain (mild 1-3) Insulin Aspart (Novolog) 0 unit SUBCUT TIDAC [facility]; Protocol Last Admin: 12/08/18 08:29 Dose: 6 units Insulin Glargine (Lantus Solostar) 20 units SUBCUT BEDTIME [facility] Last Admin: 12/07/18 20:49 Dose: 20 units Lisinopril (Prinivil) 5 mg PO DAILY [facility] Last Admin: 12/08/18 08:32 Dose: 5 mg Metoprolol Succinate (Toprol Xl) 25 mg PO BID [facility] Last Admin: 12/08/18 08:31 Dose: 25 mg Morphine Sulfate (Morphine) 2 mg IVPUSH Q2H PRN PRN Reason: Pain (severe 7-10) Stop: 12/08/18 16:59 Ondansetron HCl (Zofran Odt) 4 mg PO Q4H PRN PRN Reason: nausea, able to take PO Ondansetron HCl (Zofran) 4 mg IVPUSH Q4H PRN PRN Reason: Nausea Sodium Chloride (Saline Flush) 10 ml FLUSH ASDIRECTED PRN PRN Reason: Keep Vein Open Sodium Chloride (Saline Flush) 2.5 ml FLUSH ASDIRECTED PRN PRN Reason: Keep Vein Open Discontinued Medications Aspirin (Aspirin) 324 mg PO ONETIME ONE Stop: 12/07/18 17:07 Last Admin: 12/07/18 18:13 Dose: 324 mg Sodium Chloride (Normal Saline) 1,000 mls @ 125 mls/hr IV STAT [facility] Last Admin: 12/07/18 15:01 Dose: 125 mls/hr Insulin Aspart (Novolog) 0 unit SUBCUT TIDAC [facility]; Protocol Iopamidol (Isovue Multipack-370 (76%)) 100 ml IVPUSH ONETIME STA Stop: 12/07/18 18:35 Last Admin: 12/07/18 18:35 Dose: 100 ml Iopamidol (Isovue Multipack-370 (76%)) 100 ml IVPUSH ONETIME ONE Stop: 12/08/18 09:10 Last Admin: 12/08/18 09:10 Dose: 100 ml
== END 2018-12-08 14:10 | disposition home or self-care (01) ==
LOC: MW.ED 14:25 → MW.MS 17:27
PROVIDERS: ADMIT Internal Medicine; ATTEND Internal Medicine
DX: G45.9 Transient cerebral ischemic attack, unspecified (principal); I25.10 Atherosclerotic heart disease of native coronary artery without angina pectoris; E11.9 Type 2 diabetes mellitus without complications; I10 Essential (primary) hypertension; Z95.5 Presence of coronary angioplasty implant and graft; Z79.899 Other long term (current) drug therapy; Z79.82 Long term (current) use of aspirin; Z87.891 Personal history of nicotine dependence
CPT/HCPCS: 36415; 70450; 70496; 70498; 71045; 80048; 80053; 80061; 81003; 82962; 83036; 84443; 84484; 85025; 85027; 85610; 93005; 96360; 96361; 99285; A9270; J1650; J1815; J7040; Q9967; 96372; G0378